=== PATIENT | male | born 1955 | race Caucasian/White ===

== ENCOUNTER 2017-08-27 12:40 | Inpatient (IN) ==
--- NOTE | 2017-08-27 13:29 | Emergency Department Note ---
Disposition Clinical Impression: Tuberculoid infection Pneumonia Qualifiers: Pneumonia type: due to unspecified organism Laterality: bilateral Lung location : unspecified part of lung Qualified Code(s): J18.9 - Pneumonia, unspecified organism Disposition: Admitted As Inpatient Condition: Good Time of Disposition: 16:36 Chest Pain HPI - General Chief Complaint: ED Chest Pain Stated Complaint: cough, chest discomfort Time Seen by Provider: 08/27/17 12:53 Source: patient Limitations: no limitations Vital Signs Reviewed: Yes Nursing Notes Reviewed: Yes - History of Present Illness HPI Narrative: 62 year old male with HX of pneumoina back in may with admission to [facility]. Patinet states that he think he has pnuemonia again. He has a productive lucero colored cough without hemoptyosis. Appears to be hypotensive and tachypniec and hypoxic. Patient states that he has had subjectiv fevers with increased shortness of breath and has develoepd chest pain a few days ago associated with pleuritic pain. Patinet states that it also hurts to cough. Severity scale (1-10): 5 - Related Data Home Medications Medication Instructions Recorded Confirmed Aspirin Enteric Coated [Aspirin EC] 81 mg PO DAILY 05/25/16 08/27/17 Carvedilol [Coreg] 6.25 mg PO BIDWM 05/25/16 08/27/17 Clopidogrel [Plavix] 75 mg PO DAILY 05/25/16 08/27/17 Furosemide [Lasix] 20 mg PO DAILY 05/25/16 08/27/17 Melatonin 10 mg PO HS 05/25/16 08/27/17 Nitroglycerin [Nitrostat] 0.4 mg SL Q5M PRN 05/25/16 08/27/17 OxyCODONE ER (12 HR) [OxyCONTIN] 20 mg PO Q8HR 05/25/16 08/27/17 Oxycodone HCl 15 mg PO TID PRN 05/25/16 08/27/17 Pantoprazole Sodium [Protonix] 40 mg PO DAILY 05/25/16 08/27/17 Tamsulosin [Flomax] 0.4 mg PO QPM 05/25/16 08/27/17 Testosterone Cypionate 100 mg IM Q2W 05/25/16 08/27/17 [Depo-Testosterone] clonazePAM [Klonopin] 1 mg PO HS 05/25/16 08/27/17 Spironolactone [Aldactone] 25 mg PO DAILY 04/11/17 08/27/17 Atorvastatin [Lipitor] 10 mg PO QWEEK 08/27/17 08/27/17 Ipratropium/Albuterol Sulfate 1 puff IH QID PRN 08/27/17 08/27/17 [Combivent Respimat Inhal [place]] Polyethylene Glycol 3350 [MiraLAX] 17 gm PO DAILY PRN 08/27/17 08/27/17 Sotalol HCl [Betapace] 120 mg PO Q12H 08/27/17 08/27/17 Tiotropium [Spiriva] 18 mcg IH DAILY 08/27/17 08/27/17 clonazePAM [Klonopin] 0.5 mg PO BID PRN 08/27/17 08/27/17 Allergies Allergy/AdvReac Type Severity Reaction Status Date / Time atorvastatin AdvReac Joint Pain Verified 08/27/17 12:48 clindamycin AdvReac Gastrointestinal Verified 08/27/17 12:48 Upset fenofibrate AdvReac Joint Pain Verified 08/27/17 12:48 ketorolac AdvReac Joint Pain Verified 08/27/17 12:48 pravastatin [From Pravachol] AdvReac Joint Pain Verified 08/27/17 12:48 rosuvastatin [From Crestor] AdvReac Muscle Pain Verified 08/27/17 12:48 simvastatin AdvReac Joint Pain Verified 08/27/17 12:48 Varenicline [From Chantix] AdvReac Hallucinati Verified 08/27/17 12:48 ng Constitutional: Denies: fever, chills, weakness, weight change Eyes: Denies: eye pain, eye discharge, vision change ENT ED: Denies: ear pain, throat pain, dental pain, hearing loss, epistaxis, congestion, dysphagia Cardiovascular: Reports: chest pain, dyspnea on exertion. Denies: palpitations , edema, syncope Respiratory: Reports: cough, dyspnea. Denies: wheezes, hemoptysis, stridor Gastrointestinal: Denies: abdominal pain, nausea, vomiting, diarrhea, constipation, hematemesis, melena, hematochezia Genitourinary: Denies: urgency, dysuria, frequency, hematuria Musculoskeletal: Denies: back pain, neck pain, arthralgia, myalgia Integumentary: Denies: rash, abrasion, lesions Neurological: Denies: headache, weakness, numbness, paresthesias, confusion, abnormal gait, vertigo Psychiatric: Denies: anxiety, depression, suicidal thoughts, homicidal thoughts , auditory hallucinations, visual hallucinations Endocrine: Denies: fatigue Hematological/Lymphatic: Denies: easy bleeding, easy bruising Allergic/Immunologic: Denies: facial swelling, urticaria Chest Pain PMH - Past Medical History Medical history: Reports: CHF, coronary artery disease, GERD, hyperlipidemia, hypertension, myocardial infarction, valvular heart disease Psychiatric history: Reports: no psych history - Social History Smoking Status: Former smoker Alcohol use: Reports: none Drug use: Reports: none Physical Exam right BKA, extremities exam related to left leg - General Limitations: no limitations General appearance: alert, in no apparent distress - Head Head exam: atraumatic, normocephalic, normal inspection - Eye Eye exam: Present: normal appearance, PERRL, EOMI - Expanded Eye Exam Pupils: Left: reactive - ENT ENT exam: normal exam, normal oropharynx, mucous membranes moist - Expanded ENT Exam External ear exam: Present: normal external inspection Mouth exam: Present: normal external inspection Teeth exam: Present: normal inspection Throat exam: Present: normal inspection - Neck Neck exam: Present: normal inspection, full ROM, trachea midline - Chest Chest inspection: Present: normal inspection, symmetric chest wall rise - Expanded Respiratory Exam Location: decreased breath sounds: Left, Right, Upper, Lower - Cardiovascular Cardiovascular exam: Present: regular rate, normal rhythm, normal heart sounds - Abdominal Exam Abdominal exam: Present: soft, Non-Tender. Absent: tenderness, distention, guarding, rebound, rigidity - Extremities Exam Extremities exam: Present: normal inspection, full ROM. Absent: tenderness, pedal edema - Expanded Upper Extremity Exam Shoulder exam: Present: normal inspection, full ROM Arm exam: Present: normal inspection, full ROM Elbow exam: Present: normal inspection, full ROM Forearm/Wrist exam: Present: normal inspection, full ROM Hand exam: Present: normal inspection, full ROM Vascular exam: Normal: capillary refill, radial pulse - Expanded Lower Extremity Exam Hip/Pelvis exam: Present: normal inspection, full ROM Upper leg exam: Present: normal inspection, full ROM Knee exam: Present: normal inspection, full ROM Lower leg exam: Present: normal inspection, full ROM Ankle exam: Present: normal inspection, full ROM Foot/toe exam: Present: normal inspection, full ROM Neurovascular/Tendon exam: Absent: motor deficit, sensory deficit, tendon deficit - Back Exam Back exam: Present: normal inspection, full ROM. Absent: tenderness - Neurological Exam Neurological exam: Present: alert, oriented X3 - Expanded Neurological Exam Patient oriented to: Present: person, place, time Coma Scale Eye Opening: Spontaneous Coma Scale Motor Response: Obeys Commands Coma Scale Verbal Response: Oriented Coma Scale Total: 15 - Psychiatric Psychiatric exam: Present: normal affect, normal mood - Skin Skin exam: Present: warm, dry, intact, normal color Course Course Narrative: we will do a sepsis workup in addition to rule out PE with CTA chest. IVF/ levaquin started now - Reevaluation(s) Reevaluation #1: Marcelo may have TB, we will admit to medicine. He will need a pulmonology and infectious disease consult. Patient is agreeable to plan. Time: 15:19 - Consultations Consultation #1: Dr Hernandez accepts chen for admission. Time: 16:00 Vital Signs Temperature 97.7 F 08/27/17 12:41 Pulse Rate 66 08/27/17 12:41 Respiratory Rate 16 08/27/17 12:41 Blood Pressure 101/67 08/27/17 12:41 O2 Sat by Pulse Oximetry 90 08/27/17 12:41 Temperature 97.7 F 08/27/17 12:41 Pulse Rate 59 08/27/17 15:39 Respiratory Rate 18 08/27/17 15:39 Blood Pressure 106/66 08/27/17 15:39 O2 Sat by Pulse Oximetry 96 08/27/17 15:39 Oxygen Delivery Oxygen Delivery Room Air Chest Pain - Medical Records Medical records reviewed: Yes I reviewed the patient's medical records. - Lab Data Lab results reviewed: Yes I reviewed the patient's lab results. Result diagrams: 08/27/17 13:29 08/27/17 13:29 Lab Results 08/27/17 08/27/17 08/27/17 Range/Units 13:29 13:29 13:29 WBC (4.3-11.1) K/mcL RBC (4.19-5.50) M/mcL Hgb (12.9-16.9) g/dL Hct (37.5-50.1) % MCV (83.0-100.0) fL MCH (28.0-33.3) pg MCHC (31.6-35.5) g/dL RDW (11.5-14.5) % Plt Count (140-400) K/mcL MPV (9.4-12.4) fL Immature Gran % (0-4) % Seg Neutrophils % % Lymphocytes % % Monocytes % % Eosinophils % % Basophils % % Neutrophils # (1.6-8.9) K/mcL Lymphocytes # (0.6-4.6) K/mcL Monocytes # (0.0-1.3) K/mcL Eosinophils # (0.0-0.6) K/mcL Basophils # (0.0-0.2) K/mcL PT 14.5 H (9.4-12.1) Seconds INR 1.3 APTT 35.4 (26.0-36.0) Seconds Sodium (136-145) mEq/L Potassium (3.5-4.5) mEq/L Chloride (98-109) mEq/L Carbon Dioxide (19-29) mEq/L BUN (8-26) mg/dL Creatinine (0.72-1.25) mg/dL Est GFR ( Amer) (> 60) Est GFR (Non-Af Amer) (> 60) BUN/Creatinine Ratio (6-26) Glucose (70-99) mg/dL Calculated Osmolality (280-300) Lactic Acid (0.5-2.2) mmol/L Calcium (8.6-10.8) mg/dL Total Bilirubin 0.5 (0.2-1.2) mg/dL Direct Bilirubin 0.2 (0.0-0.5) mg/dL Indirect Bilirubin 0.3 (0.0-1.2) mg/dL AST 13 (5-34) Units/L ALT 9 (0-55) Units/L Alkaline Phosphatase 96 (38-126) Units/L Troponin I (0-0.03) ng/mL B-Natriuretic Peptide 109 H (0-100) pg/mL Serum Total Protein 10.5 H (6.0-8.3) g/dL Albumin 2.9 L (3.5-5.0) g/dL Globulin 7.6 H (2.4-3.5) g/dL Albumin/Globulin Ratio 0.4 L (1.1-2.2) Lipase (8-78) Units/L 08/27/17 08/27/17 08/27/17 Range/Units 13:29 13:29 13:29 WBC 11.7 H (4.3-11.1) K/mcL RBC 4.54 (4.19-5.50) M/mcL Hgb 12.4 L (12.9-16.9) g/dL Hct 38.4 (37.5-50.1) % MCV 84.6 (83.0-100.0) fL MCH 27.3 L (28.0-33.3) pg MCHC 32.3 (31.6-35.5) g/dL RDW 14.5 (11.5-14.5) % Plt Count 396 (140-400) K/mcL MPV 8.6 L (9.4-12.4) fL Immature Gran % 0.5 (0-4) % Seg Neutrophils % 75.0 % Lymphocytes % 11.8 % Monocytes % 9.0 % Eosinophils % 3.0 % Basophils % 0.7 % Neutrophils # 8.8 (1.6-8.9) K/mcL Lymphocytes # 1.4 (0.6-4.6) K/mcL Monocytes # 1.1 (0.0-1.3) K/mcL Eosinophils # 0.4 (0.0-0.6) K/mcL Basophils # 0.1 (0.0-0.2) K/mcL PT (9.4-12.1) Seconds INR APTT (26.0-36.0) Seconds Sodium 137 (136-145) mEq/L Potassium 4.3 (3.5-4.5) mEq/L Chloride 101 (98-109) mEq/L Carbon Dioxide 27 (19-29) mEq/L BUN 11 (8-26) mg/dL Creatinine 0.94 (0.72-1.25) mg/dL Est GFR ( Amer) > 60 (> 60) Est GFR (Non-Af Amer) > 60 (> 60) BUN/Creatinine Ratio 12 (6-26) Glucose 102 H (70-99) mg/dL Calculated Osmolality 284 (280-300) Lactic Acid (0.5-2.2) mmol/L Calcium 9.7 (8.6-10.8) mg/dL Total Bilirubin (0.2-1.2) mg/dL Direct Bilirubin (0.0-0.5) mg/dL Indirect Bilirubin (0.0-1.2) mg/dL AST (5-34) Units/L ALT (0-55) Units/L Alkaline Phosphatase (38-126) Units/L Troponin I 0.00 (0-0.03) ng/mL B-Natriuretic Peptide (0-100) pg/mL Serum Total Protein (6.0-8.3) g/dL Albumin (3.5-5.0) g/dL Globulin (2.4-3.5) g/dL Albumin/Globulin Ratio (1.1-2.2) Lipase < 10 (8-78) Units/L 10/24/17 Range/Units 14:08 WBC (4.3-11.1) K/mcL RBC (4.19-5.50) M/mcL Hgb (12.9-16.9) g/dL Hct (37.5-50.1) % MCV (83.0-100.0) fL MCH (28.0-33.3) pg MCHC (31.6-35.5) g/dL RDW (11.5-14.5) % Plt Count (140-400) K/mcL MPV (9.4-12.4) fL Immature Gran % (0-4) % Seg Neutrophils % % Lymphocytes % % Monocytes % % Eosinophils % % Basophils % % Neutrophils # (1.6-8.9) K/mcL Lymphocytes # (0.6-4.6) K/mcL Monocytes # (0.0-1.3) K/mcL Eosinophils # (0.0-0.6) K/mcL Basophils # (0.0-0.2) K/mcL PT (9.4-12.1) Seconds INR APTT (26.0-36.0) Seconds Sodium (136-145) mEq/L Potassium (3.5-4.5) mEq/L Chloride (98-109) mEq/L Carbon Dioxide (19-29) mEq/L BUN (8-26) mg/dL Creatinine (0.72-1.25) mg/dL Est GFR ( Amer) (> 60) Est GFR (Non-Af Amer) (> 60) BUN/Creatinine Ratio (6-26) Glucose (70-99) mg/dL Calculated Osmolality (280-300) Lactic Acid 2.7 H (0.5-2.2) mmol/L Calcium (8.6-10.8) mg/dL Total Bilirubin (0.2-1.2) mg/dL Direct Bilirubin (0.0-0.5) mg/dL Indirect Bilirubin (0.0-1.2) mg/dL AST (5-34) Units/L ALT (0-55) Units/L Alkaline Phosphatase (38-126) Units/L Troponin I (0-0.03) ng/mL B-Natriuretic Peptide (0-100) pg/mL Serum Total Protein (6.0-8.3) g/dL Albumin (3.5-5.0) g/dL Globulin (2.4-3.5) g/dL Albumin/Globulin Ratio (1.1-2.2) Lipase (8-78) Units/L - Radiology Data Radiology results reviewed: Yes I reviewed the patient's radiology results. - EKG Data EKG attestation: Yes I reviewed and interpreted this EKG. EKG results narrative: NSR with rate of 60. NO STEMI. normal intervals. no change from 07/19/15. [id number]
[2017-08-27] MEDS ORDERED: Levofloxacin 750 MG/150 ML 750 MG/150 ML BAG IVPB ONE (13:30)
[2017-08-27 13:41] LABS: Basophils # 0.1 K/mcL (0.0-0.2); Basophils % 0.7 %; Eosinophils # 0.4 K/mcL (0.0-0.6); Hematocrit 38.4 % (37.5-50.1); Hemoglobin 12.4 g/dL (12.9-16.9); Immature Granulocytes % 0.5 % (0-4); Lymphocytes # 1.4 K/mcL (0.6-4.6); Lymphocytes % 11.8 %; Mean Corpuscular HGB Conc 32.3 g/dL (31.6-35.5); Mean Corpuscular Hemoglobin 27.3 pg (28.0-33.3); Mean Corpuscular Volume 84.6 fL (83.0-100.0); Mean Platelet Volume 8.6 fL (9.4-12.4); Monocytes # 1.1 K/mcL (0.0-1.3); Neutrophils # 8.8 K/mcL (1.6-8.9); Platelet Count 396 K/mcL (140-400); Red Blood Count 4.54 M/mcL (4.19-5.50); Red Cell Distribution Width 14.5 % (11.5-14.5)
[2017-08-27 13:48] LABS: INR 1.3; Prothrombin Time 14.5 Seconds (9.4-12.1)
[2017-08-27 13:50] LABS: Activated Partial Thrombo Time 35.4 Seconds (26.0-36.0)
[2017-08-27 13:54] LABS: Albumin 2.9 g/dL (3.5-5.0); Albumin/Globulin Ratio 0.4 (1.1-2.2); Bilirubin,Direct 0.2 mg/dL (0.0-0.5); Bilirubin,Indirect 0.3 mg/dL (0.0-1.2); Bilirubin,Total 0.5 mg/dL (0.2-1.2); Globulin 7.6 g/dL (2.4-3.5); Total Protein 10.5 g/dL (6.0-8.3)
[2017-08-27 13:55] LABS: BUN/Creatinine Ratio 12 (6-26); Blood Urea Nitrogen 11 mg/dL (8-26); Calcium 9.7 mg/dL (8.6-10.8); Carbon Dioxide 27 mEq/L (19-29); Chloride 101 mEq/L (98-109); Glucose 102 mg/dL (70-99); Lipase < 10 Units/L (8-78); Osmolality,Calculated 284 (280-300); Potassium 4.3 mEq/L (3.5-4.5); Sodium 137 mEq/L (136-145); eGFR For African Americans > 60 (> 60); eGFR For Non-African Americans > 60 (> 60)
[2017-08-27] MEDS: 0.9 % Sodium Chloride 1,000 ML IVC SCH ×2 (14:00→14:39)
[2017-08-27] MEDS ORDERED: Ondansetron ODT 4 MG TAB.RAPDIS SL PRN (17:08)
[2017-08-27] MEDS ORDERED: Acetaminophen 325 MG TABLET PO PRN (17:08)
[2017-08-27] MEDS ORDERED: Naloxone 0.4 MG/ML INJ IVP PRN (17:08)
[2017-08-27] MEDS ORDERED: 0.9 % Sodium Chloride 1,000 ML IVC SCH (17:15)
[2017-08-27] MEDS ORDERED: (Ipratropium/Albuterol Sulfate [Combivent Respimat In) IH PRN (17:29)
[2017-08-27] MEDS ORDERED: clonazePAM 0.5 MG TABLET PO PRN (17:29)
[2017-08-27] MEDS ORDERED: Nitroglycerin 0.4 MG TAB.SUBL SL PRN (17:29)
[2017-08-27] MEDS ORDERED: Tuberculin Skin Test (PPD) 5 TUB/0.1 ML VIAL ID ONE (17:34)
[2017-08-27] MEDS: Ipratropium/Albuterol Neb 3 ML IH PRN (21:11)
[2017-08-27] MEDS: *HR* OxyCODONE Immed Rel 15 MG TABLET PO PRN (21:23)
[2017-08-27] MEDS: clonazePAM 1 MG TABLET PO SCH (21:25)
[2017-08-27] MEDS: Melatonin 3 MG TABLET PO SCH (23:52)
[2017-08-27] MEDS: *HR* OxyCODONE ER (12 HR) 20 MG TABLET PO SCH (23:52)
[2017-08-28] MEDS: *HR* OxyCODONE Immed Rel 15 MG TABLET PO PRN ×2 (05:23→20:16)
[2017-08-28] MEDS: *HR* Enoxaparin 40 MG/0.4 ML SYRINGE SQ SCH (05:23)
[2017-08-28 05:45] LABS: Basophils # 0.1 K/mcL (0.0-0.2); Basophils % 0.3 %; Eosinophils # 0.2 K/mcL (0.0-0.6); Hematocrit 33.5 % (37.5-50.1); Immature Granulocytes % 0.5 % (0-4); Lymphocytes # 1.2 K/mcL (0.6-4.6); Mean Corpuscular HGB Conc 32.2 g/dL (31.6-35.5); Mean Corpuscular Hemoglobin 26.6 pg (28.0-33.3); Mean Corpuscular Volume 82.5 fL (83.0-100.0); Monocytes # 1.1 K/mcL (0.0-1.3); Monocytes % 7.4 %; Neutrophils # 12.1 K/mcL (1.6-8.9); Platelet Count 364 K/mcL (140-400); Red Blood Count 4.06 M/mcL (4.19-5.50); Red Cell Distribution Width 14.7 % (11.5-14.5); Segmented Neutrophils % 82.8 %
[2017-08-28 05:46] LABS: Hemoglobin 10.8 g/dL (12.9-16.9)
[2017-08-28 05:53] LABS: BUN/Creatinine Ratio 11 (6-26); Blood Urea Nitrogen 9 mg/dL (8-26); Calcium 8.9 mg/dL (8.6-10.8); Carbon Dioxide 24 mEq/L (19-29); Chloride 103 mEq/L (98-109); Glucose 97 mg/dL (70-99); Osmolality,Calculated 277 (280-300); Sodium 134 mEq/L (136-145); eGFR For African Americans > 60 (> 60); eGFR For Non-African Americans > 60 (> 60)
--- NOTE | 2017-08-28 06:11 | Internal Med History&Physical ---
<Ladarius Smith - Last Filed: 08/28/17 08:59> Date of Encounter: 08/27/17 Time of Encounter: 16:30 Assessment and Plan (1) Acute respiratory failure with hypoxia Current visit: Yes Status: Acute Pt does not use home O2. Pt provided with nasal canula at 2L, saturating at 92-93. Presenting with non-bloody cough, chest pain, and fevers suggestive of acute infection on chronic COPD. Most recent CTA of lung shows hyperinflation, bronchiectasis, hilarlymphadenopathy, and multifocal consolidations. Placed on Levofloxacin and Zosyn in addition to steroid. Continue Duoneb, Spiriva. (2) Tuberculoid infection Current visit: Yes Status: Acute CTA reports patchy multifocal consolidations in right upper lobe base and anterior left upper lobe which may suggest mycobacterial disease. Consulting Pulmonology. AFB smear ordered. Quanterferon ordered. TB infectious process unlikely from clinical correlate and patient history. (3) COPD (chronic obstructive pulmonary disease) Current visit: Yes Status: Acute Non-bloody cough, chest pain, and fevers suggestive of acute infection on chronic COPD. Most recent CTA of lung shows hyperinflation, bronchiectasis, hilarlymphadenopathy, and multifocal consolidations. Placed on Levofloxacin and Zosyn in addition to steroid. Continue Duoneb, Spiriva. Qualifiers: Qualified Code(s): J44.1 - Chronic obstructive pulmonary disease with (acute ) exacerbation (4) CHF (congestive heart failure) Current visit: Yes Status: Acute History of CHF, currently very mild symptoms. BNP 109. Continue Coreg, Sotalol, Lasix, Plavix, Aldactone. Qualifiers: Congestive heart failure type: systolic Qualified Code(s): I50.22 - Chronic systolic (congestive) heart failure (5) CAD (coronary artery disease) Current visit: Yes Status: Chronic [place] at 44; v-tac history. Pacemaker/defibrilator place. Troponin negative. Continue Post-[place] medications: Aspirin, bb, diuretic, not-currently on statin. Qualifiers: Qualified Code(s): I25.10 - Atherosclerotic heart disease of [place] coronary artery without angina pectoris (6) HTN (hypertension) Current visit: Yes Status: Chronic Patient to continue antihypertensive medications: bb, lasix. Qualifiers: Hypertension type: essential hypertension Qualified Code(s): I10 - Essential (primary) hypertension (7) DVT prophylaxis Current visit: Yes Status: Acute On Lovenox 40mg SQ Internal Medicine - H&P: HPI Chief complaint: chest pain Admitted From: Emergency Dept Plans for Post Hospital Care: Home History of present illness: Mr. Beltran is a 62 year old male with past medical history of CHF and COPD, former smoker, who presents to the ED for chest pain, productive cough, and shortness of breath that began a few days ago. Patient describes the location as bilateral chest villatoro. He has felt warm, coughing, and abrupt movements cause the pain. Has been following a science analyst, who a week ago performed needle biopsy of nodule in his lung. Pt states the science analyst does not think it is a form of cancer. Denies diarrhea, exertional chest pain, night sweats, or hemoptysis. Past Med Surg Social Fam HX - Past Medical History Medical history: CHF, coronary artery disease, GERD, hyperlipidemia, hypertension, myocardial infarction, valvular heart disease Psychiatric history: no psych history - Social History Smoking Status: Former smoker Smokeless Tobacco Status: No Alcohol use: none Drug use: none Internal Medicine - H&P: Meds Aspirin Enteric Coated [Aspirin EC] 81 mg PO DAILY 05/25/16 [History] Carvedilol [Coreg] 6.25 mg PO BIDWM 05/25/16 [History] Clopidogrel [Plavix] 75 mg PO DAILY 05/25/16 [History] Furosemide [Lasix] 20 mg PO DAILY 05/25/16 [History] Melatonin 10 mg PO HS 05/25/16 [History] Nitroglycerin [Nitrostat] 0.4 mg SL Q5M PRN 05/25/16 [History] OxyCODONE ER (12 HR) [OxyCONTIN] 20 mg PO Q8HR 05/25/16 [History] Oxycodone HCl 15 mg PO TID PRN 05/25/16 [History] Pantoprazole Sodium [Protonix] 40 mg PO DAILY 05/25/16 [History] Tamsulosin [Flomax] 0.4 mg PO QPM 05/25/16 [History] Testosterone Cypionate [Depo-Testosterone] 100 mg IM Q2W 05/25/16 [History] clonazePAM [Klonopin] 1 mg PO HS 05/25/16 [History] Spironolactone [Aldactone] 25 mg PO DAILY 04/11/17 [History] Atorvastatin [Lipitor] 10 mg PO QWEEK 08/27/17 [History] Ipratropium/Albuterol Sulfate [Combivent Respimat Inhal [place]] 1 puff IH QID PRN 08/27/17 [History] Polyethylene Glycol 3350 [MiraLAX] 17 gm PO DAILY PRN 08/27/17 [History] Sotalol HCl [Betapace] 120 mg PO Q12H 08/27/17 [History] Tiotropium [Spiriva] 18 mcg IH DAILY 08/27/17 [History] clonazePAM [Klonopin] 0.5 mg PO BID PRN 08/27/17 [History] 3 Allergy/AdvReac Type Severity Reaction Status Date / Time atorvastatin AdvReac Joint Pain Verified 08/27/17 12:48 clindamycin AdvReac Gastrointestinal Verified 08/27/17 12:48 Upset fenofibrate AdvReac Joint Pain Verified 08/27/17 12:48 ketorolac AdvReac Joint Pain Verified 08/27/17 12:48 pravastatin [From Pravachol] AdvReac Joint Pain Verified 08/27/17 12:48 rosuvastatin [From Crestor] AdvReac Muscle Pain Verified 08/27/17 12:48 simvastatin AdvReac Joint Pain Verified 08/27/17 12:48 Varenicline [From Chantix] AdvReac Hallucinati Verified 08/27/17 12:48 ng All Systems PM: A 10-system review of systems was performed and is negative for pertinent findings except as documented above in the HPI. - Constitutional Constitutional: fatigue, weight loss, no night sweats - Cardiovascular Cardiovascular ROS IM: no edema - Respiratory Respiratory: cough, pain with cough, no hemoptysis - Gastrointestinal Gastrointestinal: no abdominal pain, no diarrhea - Musculoskeletal Musculoskeletal ROS IM: no numbness, no tingling - Neurological Neurological ROS: no confusion, no weakness - Endocrine Endocrine IM: no excessive sweating - Constitutional Vitals: Temp Pulse Resp BP Pulse Ox 100.3 F H 86 18 112/68 91 08/28/17 04:38 08/28/17 04:38 08/28/17 04:38 08/28/17 04:38 08/28/17 04:38 General appearance: Present: A&O X 3, no acute distress - Respiratory Respiratory exam: Present: decreased breath sounds. Absent: accessory muscle use, wheezes - Cardiovascular Cardiovascular exam: Present: RRR, +S1, +S2. Absent: systolic murmur - GI/Abdominal GI/Abdominal exam: Present: no peritoneal signs. Absent: tenderness - Extremities Exam Additional comments: Right knee amputation. - Skin Skin exam: Present: normal color, warm. Absent: diaphoretic Internal Med - H&P Results - Labs CBC & Chem 7: 08/28/17 05:08 08/28/17 05:08 Labs: Short CBC 08/28/17 Range/Units 05:08 WBC 14.7 H (4.3-11.1) K/mcL Hgb 10.8 L D (12.9-16.9) g/dL Hct 33.5 L (37.5-50.1) % Plt Count 364 (140-400) K/mcL Neutrophils # 12.1 H (1.6-8.9) K/mcL BMP 08/28/17 05:08 Sodium 134 L Potassium 4.0 Chloride 103 Carbon Dioxide 24 BUN 9 Creatinine 0.82 Glucose 97 Calcium 8.9 <Alyson Ventura - Last Filed: 08/28/17 16:20> Date of Encounter: 08/28/17 Internal Medicine - H&P: HPI History of present illness: Mr. Beltran is a 62 year old male All Systems PM: A 10-system review of systems was performed and is negative for pertinent findings except as documented above in the HPI. - Constitutional Vitals: Temp Pulse Resp BP Pulse Ox 97.6 F 74 18 104/84 93 08/28/17 11:16 08/28/17 11:16 08/28/17 11:16 08/28/17 11:16 08/28/17 11:16 Internal Med - H&P Results - Labs CBC & Chem 7: 08/28/17 05:08 08/28/17 05:08 Labs: Short CBC 08/28/17 Range/Units 05:08 WBC 14.7 H (4.3-11.1) K/mcL Hgb 10.8 L D (12.9-16.9) g/dL Hct 33.5 L (37.5-50.1) % Plt Count 364 (140-400) K/mcL Neutrophils # 12.1 H (1.6-8.9) K/mcL BMP 08/28/17 05:08 Sodium 134 L Potassium 4.0 Chloride 103 Carbon Dioxide 24 BUN 9 Creatinine 0.82 Glucose 97 Calcium 8.9 - Attending Attestation I examined this patient and my medical decision-making was reviewed with the Resident Physician. I agree with the documented findings, disposition and treatment plan as described except to the extent set forth below. Mr. Beltran is a 62 yo m with history of CHF, COPD, and frequent recurrent pneumonia that presented to the ED with dyspnea, cough, and chest pain. He says that he has been battling frequent pneumonias since December, and has been treated by his primary care and science analyst. On this last Saturday, the patient completed pulmonary function test, and the next day he woke up with severe stabbing chest pains with movement or deep inspiration, cough, and weakness. In the ED the patient had a CTA chest which demonstrated patchy multifocal consolidative changes consistent with possible mycobacterium. Pt did mentions that he'd been seen and treated by a science analyst at [facility] had bronchoscopy and biopsy of the lung to look for cancer, but it was negative Gen: A, A< O x 3 Chest: Diminished BS, coarse tubular BS b/l.. No rales. No rhonchi, moderate wheezing Heart : S1 S2 ++ RRR No murmurs a/p 1. Acute pneumonia - mostly bacterial 2. Abnormal CT of Chest findings concern for Mycobacterial inf 3. Acute hypoxic rsp failure 4. Acute COPD exacerbation started him TB precautions Sent for Tb work up Pulmonary consulted on Zosyn and Levaquin abx on Steroids + Duoneb 5. Chronic systolic CHF family told me he had LVEF 30-35% currently not in exacerbation cont home meds for now
[2017-08-28] MEDS: Tiotropium 18 MCG inhalation IH SCH (08:06)
[2017-08-28] MEDS: Aspirin Enteric Coated 81 MG Tablet PO SCH (08:10)
[2017-08-28] MEDS: MethylPREDNISolone 40 MG/ML VIAL IVP SCH ×2 (08:10→20:16)
[2017-08-28] MEDS: *HR* OxyCODONE ER (12 HR) 20 MG TABLET PO SCH ×3 (08:10→16:12)
[2017-08-28] MEDS: Furosemide 20 MG TABLET PO SCH ×2 (08:10→09:40)
[2017-08-28] MEDS ORDERED: Spironolactone 25 MG TABLET PO SCH (09:00)
[2017-08-28] MEDS ORDERED: Levofloxacin 500 MG/100 ML 500 MG/100 ML BAG IVPB SCH (09:00)
--- NOTE | 2017-08-28 09:00 | Pulmonology Consult Note ---
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 Patient denies cyclical fevers, chills, sweats, hemoptysis Patient denies all risk factors for TB, and denies risk factors for HIV infection Primary team ordered AFB, Quantiferon. Patient on respiratory precautions We will due three consecutive smears to rule out tb Discontinue levaquin, initiate Azithromycin History of Present Illness Consult date: 08/28/17 Requesting physician: Alyson Ventura Reason for consult: pneumonia (Possible TB) Chief complaint: Chest pain and dyspnea History of present illness: Mr. Beltran is a 62 yo m with history of CHF, COPD, and frequent recurrent pneumonia that presented to the ED with dyspnea, cough, and chest pain. He says that he has been battling frequent pneumonias since December, and has been treated by his primary care and visual education director. On this last Saturday, the patient completed pulmonary function test, and the next day he woke up with severe stabbing chest pains with movement or deep inspiration, cough, and weakness. The patient denies fevers, chills, night sweats, hemoptysis. He says the cough is only productive after using a nebulizer, but is otherwise dry in nature. Nothing seems to exacerbate or alleviate the symptoms, but he felt like he may need an antibiotic to improve because that's what he has needed in the past. He said it has gotten worse, and the visual education director told him to go to the ER. Significantly, the patient mentions that he'd been seen and treated by a visual education director at [facility] who did a biopsy of the lung to look for cancer, but it was negative. In the ED the patient had a CTA chest which demonstrated patchy multifocal consolidative changes consistent with possible mycobacterium. Past Med Surg Social Fam HX - Past Medical History Medical history: CHF, coronary artery disease, GERD, hyperlipidemia, hypertension, myocardial infarction, valvular heart disease Psychiatric history: no psych history - Social History Smoking Status: Former smoker Smokeless Tobacco Status: No Alcohol use: none Drug use: none Medications and Allergies Aspirin Enteric Coated [Aspirin EC] 81 mg PO DAILY 05/25/16 [History] Carvedilol [Coreg] 6.25 mg PO BIDWM 05/25/16 [History] Clopidogrel [Plavix] 75 mg PO DAILY 05/25/16 [History] Furosemide [Lasix] 20 mg PO DAILY 05/25/16 [History] Melatonin 10 mg PO HS 05/25/16 [History] Nitroglycerin [Nitrostat] 0.4 mg SL Q5M PRN 05/25/16 [History] OxyCODONE ER (12 HR) [OxyCONTIN] 20 mg PO Q8HR 05/25/16 [History] Oxycodone HCl 15 mg PO TID PRN 05/25/16 [History] Pantoprazole Sodium [Protonix] 40 mg PO DAILY 05/25/16 [History] Tamsulosin [Flomax] 0.4 mg PO QPM 05/25/16 [History] Testosterone Cypionate [Depo-Testosterone] 100 mg IM Q2W 05/25/16 [History] clonazePAM [Klonopin] 1 mg PO HS 05/25/16 [History] Spironolactone [Aldactone] 25 mg PO DAILY 04/11/17 [History] Atorvastatin [Lipitor] 10 mg PO QWEEK 08/27/17 [History] Ipratropium/Albuterol Sulfate [Combivent Respimat Inhal [place]] 1 puff IH QID PRN 08/27/17 [History] Polyethylene Glycol 3350 [MiraLAX] 17 gm PO DAILY PRN 08/27/17 [History] Sotalol HCl [Betapace] 120 mg PO Q12H 08/27/17 [History] Tiotropium [Spiriva] 18 mcg IH DAILY 08/27/17 [History] clonazePAM [Klonopin] 0.5 mg PO BID PRN 08/27/17 [History] 3 Allergy/AdvReac Type Severity Reaction Status Date / Time atorvastatin AdvReac Joint Pain Verified 08/27/17 12:48 clindamycin AdvReac Gastrointestinal Verified 08/27/17 12:48 Upset fenofibrate AdvReac Joint Pain Verified 08/27/17 12:48 ketorolac AdvReac Joint Pain Verified 08/27/17 12:48 pravastatin [From Pravachol] AdvReac Joint Pain Verified 08/27/17 12:48 rosuvastatin [From Crestor] AdvReac Muscle Pain Verified 08/27/17 12:48 simvastatin AdvReac Joint Pain Verified 08/27/17 12:48 Varenicline [From Chantix] AdvReac Hallucinati Verified 08/27/17 12:48 ng All Systems: A 10-system review of systems was performed and is negative for pertinent findings except as documented above in the HPI. - Constitutional Constitutional: no anorexia, no chills, no excessive sweating, no fever(s), no night sweats - EENT Eyes: no loss of vision Nose, mouth and throat: no sinus pain, no sinus pressure - Cardiovascular Cardiovascular: chest pain at rest, dyspnea, edema, no claudication, no diaphoresis, no lightheadedness, no orthopnea, no palpitations, no radiating pain - Respiratory Respiratory: cough, dyspnea, pain on inspirtation, chest congestion, pain with cough, no excessive phlegm production, no change in phlegm color - Gastrointestinal Gastrointestinal: no abdominal pain, no heartburn, no hematochezia, no melena, no nausea, no vomiting - Genitourinary Genitourinary: no change in urinary stream, no dysuria - Musculoskeletal Musculoskeletal: no arthralgias, no joint swelling, no muscle weakness, no myalgias - Integumentary Integumentary: no rash - Neurological Neurological: no abnormal speech, no confusion, no disequilibrium, no focal weakness - Psychiatric Psychiatric: anxiety, no mood swings, no panic attacks, no suicidal ideation - Endocrine Endocrine: no flushing, no heat intolerance, no palpitations - Hematologic/Lymphatic Hematologic/Lymphatic: no lymphadenopathy Physical Examination Vital Signs: Vital Signs, Last 4 Hours Temp Pulse Resp BP Pulse Ox 08/28/17 07:11 98.3 F 80 18 96/47 92 General appearance: no acute distress Eyes: nonicteric ENT: oropharynx moist Neck: supple Effort: normal Inspection: normal Auscultation: bilateral: wheezes (mild but diffuse) Percussion: bilateral: not dull Cardiovascular: regular rate and rhythm Gastrointestinal: normoactive bowel sounds, non-distended Integumentary: normal Extremities: no cyanosis, no edema, no clubbing Musculoskeletal: no deformities, ROM normal non-focal exam affect normal (aggressive) Neck: Supple, no lymphadenopathy Skin: So rash, lesions Results - Laboratory Findings CBC and BMP: 08/28/17 05:08 08/28/17 05:08 PT/INR, D-dimer PT 14.5 Seconds (9.4-12.1) H 08/27/17 13:29 Abnormal lab findings: Abnormal lab results WBC 14.7 K/mcL (4.3-11.1) H 08/28/17 05:08 RBC 4.06 M/mcL (4.19-5.50) L 08/28/17 05:08 Hgb 10.8 g/dL (12.9-16.9) L D 08/28/17 05:08 Hct 33.5 % (37.5-50.1) L 08/28/17 05:08 MCV 82.5 fL (83.0-100.0) L 08/28/17 05:08 MCH 26.6 pg (28.0-33.3) L 08/28/17 05:08 RDW 14.7 % (11.5-14.5) H 08/28/17 05:08 MPV 9.0 fL (9.4-12.4) L 08/28/17 05:08 Neutrophils # 12.1 K/mcL (1.6-8.9) H 08/28/17 05:08 PT 14.5 Seconds (9.4-12.1) H 08/27/17 13:29 Sodium 134 mEq/L (136-145) L 08/28/17 05:08 Lactic Acid 2.7 mmol/L (0.5-2.2) H 08/27/17 14:08 Calculated Osmolality 277 (280-300) L 08/28/17 05:08 B-Natriuretic Peptide 109 pg/mL (0-100) H 08/27/17 13:29 Serum Total Protein 10.5 g/dL (6.0-8.3) H 08/27/17 13:29 Albumin 2.9 g/dL (3.5-5.0) L 08/27/17 13:29 Globulin 7.6 g/dL (2.4-3.5) H 08/27/17 13:29 Albumin/Globulin Ratio 0.4 (1.1-2.2) L 08/27/17 13:29 - Microbiology Findings Microbiology Findings: Microbiology, Last 48 Hours 08/27/17 21:37 Sputum Culture - Preliminary Sputum - Clinical Findings Intake & Output: Intake & Output 08/27/17 08/28/17 08/28/17 23:59 07:59 15:59 Intake Total 390 / 1390 Output Total 480 / 480 Balance 390 / 1390 -480 / -480 Weight 79.1 kg Consult Discharge Plan - Plan Referrals: Alessia Burgos MD [Primary Care Provider] - 09/05/17 10:30 am <Skye Murray - Last Filed: 08/28/17 13:18> Date of Encounter: 08/28/17 All Systems: A 10-system review of systems was performed and is negative for pertinent findings except as documented above in the HPI. Physical Examination Vital Signs: Vital Signs, Last 4 Hours Temp Pulse Resp BP Pulse Ox 08/28/17 11:16 97.6 F 74 18 104/84 93 08/28/17 09:37 115/70 Extremities: other (Right side AKA) Results - Laboratory Findings CBC and BMP: 08/28/17 05:08 08/28/17 05:08 PT/INR, D-dimer PT 14.5 Seconds (9.4-12.1) H 08/27/17 13:29 Abnormal lab findings: Abnormal lab results WBC 14.7 K/mcL (4.3-11.1) H 08/28/17 05:08 RBC 4.06 M/mcL (4.19-5.50) L 08/28/17 05:08 Hgb 10.8 g/dL (12.9-16.9) L D 08/28/17 05:08 Hct 33.5 % (37.5-50.1) L 08/28/17 05:08 MCV 82.5 fL (83.0-100.0) L 08/28/17 05:08 MCH 26.6 pg (28.0-33.3) L 08/28/17 05:08 RDW 14.7 % (11.5-14.5) H 08/28/17 05:08 MPV 9.0 fL (9.4-12.4) L 08/28/17 05:08 Neutrophils # 12.1 K/mcL (1.6-8.9) H 08/28/17 05:08 PT 14.5 Seconds (9.4-12.1) H 08/27/17 13:29 Sodium 134 mEq/L (136-145) L 08/28/17 05:08 Lactic Acid 2.7 mmol/L (0.5-2.2) H 08/27/17 14:08 Calculated Osmolality 277 (280-300) L 08/28/17 05:08 B-Natriuretic Peptide 109 pg/mL (0-100) H 08/27/17 13:29 Serum Total Protein 10.5 g/dL (6.0-8.3) H 08/27/17 13:29 Albumin 2.9 g/dL (3.5-5.0) L 08/27/17 13:29 Globulin 7.6 g/dL (2.4-3.5) H 08/27/17 13:29 Albumin/Globulin Ratio 0.4 (1.1-2.2) L 08/27/17 13:29 - Microbiology Findings Microbiology Findings: Microbiology, Last 48 Hours 08/27/17 21:37 Sputum Culture - Preliminary Sputum - Clinical Findings Intake & Output: Intake & Output 08/27/17 08/28/17 08/28/17 23:59 07:59 15:59 Intake Total 390 / 1390 240 / 240 Output Total 480 / 480 Balance 390 / 1390 -480 / -480 240 / 240 Weight 79.1 kg - Attending Attestation I examined this patient and my medical decision-making was reviewed with the Resident Physician. I agree with the documented findings, disposition and treatment plan as described except to the extent set forth below. Patient seen and examined. Labs, radiology, chart personally reviewed. 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 Reviewed CT chest with evidence of infiltrates, suspicion for Mycobacterium tuberculosis is low clinically, however he would need 3 AFB smears acute and also stop Levaquin since it can interfere with the testing. Added azithromycin for atypical coverage. After 3 smears, if they are negative and no improvement clinically and patient will need bronchoscopy. Thank you very much for allowing us participating in the care of this patient.
[2017-08-28] MEDS: Azithromycin 250 MG TABLET PO SCH (09:33)
--- NOTE | 2017-08-28 11:10 | Internal Med Progress Note ---
<Ladarius Smith - Last Filed: 08/28/17 11:30> Date of Encounter: 08/28/17 Time of Encounter: 11:09 - Assessment and plan (1) Acute respiratory failure with hypoxia Current Visit: Yes Status: Acute Assessment and plan: Pt does not use home O2. Pt provided with nasal canula at 2L, saturating at 92-93. Presenting with non-bloody cough, chest pain, and fevers suggestive of acute infection on chronic COPD. Most recent CTA of lung shows hyperinflation, bronchiectasis, hilarlymphadenopathy, and multifocal consolidations. Continue Duoneb, Spiriva. Levofloxacin changed to azithromycin as per pulmonology to assist with TB rule out. (2) Tuberculoid infection Current Visit: Yes Status: Suspected Assessment and plan: As noted above, levofloxacin changed to azithromycin. Pulmonology consulted, sputum sample cultured, smears pending. (3) COPD (chronic obstructive pulmonary disease) Current Visit: Yes Status: Acute Assessment and plan: Non-bloody cough, chest pain, and fevers suggestive of acute infection on chronic COPD. Most recent CTA of lung shows hyperinflation, bronchiectasis, hilarlymphadenopathy, and multifocal consolidations. Given methyprednisolone. On 3L nasal cannula. Continue Duoneb, Spiriva Qualifiers: Qualified Code(s): J44.1 - Chronic obstructive pulmonary disease with (acute ) exacerbation (4) CHF (congestive heart failure) Current Visit: Yes Status: Acute Assessment and plan: History of CHF, currently very mild symptoms. BNP 109. Continue Coreg, Sotalol, Lasix, Plavix, hold Aldactone due to lower BPs. Qualifiers: Congestive heart failure type: systolic Qualified Code(s): I50.22 - Chronic systolic (congestive) heart failure (5) CAD (coronary artery disease) Current Visit: Yes Status: Chronic Assessment and plan: WA at 44; v-tac history. Pacemaker/defibrilator place. Troponin negative. Continue Post-WA medications: Aspirin, bb, diuretic, not-currently on statin. Qualifiers: Qualified Code(s): I25.10 - Atherosclerotic heart disease of [place] coronary artery without angina pectoris (6) HTN (hypertension) Current Visit: Yes Status: Chronic Assessment and plan: Patient to continue antihypertensive medications: bb, lasix. Qualifiers: Hypertension type: essential hypertension Qualified Code(s): I10 - Essential (primary) hypertension (7) DVT prophylaxis Current Visit: Yes Status: Acute Assessment and plan: On Lovenox 40mg SQ - Subjective Interval history: Patient sitting relatively comfortably on 3L nasal cannula. Reports breathing treatments improve symptoms but has productive coughing for prolonged duration right after. Not currently coughing. Denies dysurea, leg swelling, shortness of breath. - Constitutional Vitals: Temp Pulse Resp BP Pulse Ox 98.3 F 80 18 115/70 92 08/28/17 07:11 08/28/17 07:11 08/28/17 07:11 08/28/17 09:37 08/28/17 07:11 General appearance: Present: A&O X 3, no acute distress - Respiratory Respiratory exam: Present: decreased breath sounds Additional comments: posterior left lung base rhonchi. - Cardiovascular Cardiovascular exam: Present: RRR, +S1, +S2 - GI/Abdominal GI/Abdominal exam: Present: no peritoneal signs. Absent: tenderness - Extremities Exam Extremities exam: Present: normal capillary refill, warm. Absent: pedal edema, tenderness Internal Medicine: Result - Labs CBC & Chem 7: 08/28/17 05:08 08/28/17 05:08 Labs: Short CBC 08/28/17 Range/Units 05:08 WBC 14.7 H (4.3-11.1) K/mcL Hgb 10.8 L D (12.9-16.9) g/dL Hct 33.5 L (37.5-50.1) % Plt Count 364 (140-400) K/mcL Neutrophils # 12.1 H (1.6-8.9) K/mcL BMP 08/28/17 05:08 Sodium 134 L Potassium 4.0 Chloride 103 Carbon Dioxide 24 BUN 9 Creatinine 0.82 Glucose 97 Calcium 8.9 - ABG Interpretation ABG results: PT/INR, D-dimer PT 14.5 Seconds (9.4-12.1) H 08/27/17 13:29 Consult Discharge Plan - Plan Referrals: Alessia Burgos MD [Primary Care Provider] - 09/05/17 10:30 am <Alyson Ventura - Last Filed: 08/28/17 16:22> Date of Encounter: 08/28/17 - Constitutional Vitals: Temp Pulse Resp BP Pulse Ox 97.6 F 74 18 104/84 93 08/28/17 11:16 08/28/17 11:16 08/28/17 11:16 08/28/17 11:16 08/28/17 11:16 Internal Medicine: Result - Labs CBC & Chem 7: 08/28/17 05:08 08/28/17 05:08 Labs: Short CBC 08/28/17 Range/Units 05:08 WBC 14.7 H (4.3-11.1) K/mcL Hgb 10.8 L D (12.9-16.9) g/dL Hct 33.5 L (37.5-50.1) % Plt Count 364 (140-400) K/mcL Neutrophils # 12.1 H (1.6-8.9) K/mcL BMP 08/28/17 05:08 Sodium 134 L Potassium 4.0 Chloride 103 Carbon Dioxide 24 BUN 9 Creatinine 0.82 Glucose 97 Calcium 8.9 - ABG Interpretation ABG results: PT/INR, D-dimer PT 14.5 Seconds (9.4-12.1) H 08/27/17 13:29 - Attending Attestation I examined this patient and my medical decision-making was reviewed with the Resident Physician. I agree with the documented findings, disposition and treatment plan as described except to the extent set forth below. Mr. Beltran is a 62 yo m with history of CHF, COPD, and frequent recurrent pneumonia that presented to the ED with dyspnea, cough, and chest pain. In the ED the patient had a CTA chest which demonstrated patchy multifocal consolidative changes consistent with possible mycobacterium. Pt did mentions that he'd been seen and treated by a digital photographic printer at [facility] had bronchoscopy and biopsy of the lung to look for cancer, but it was negative. He did develop low grade fever this morning with T max 100.3 Gen: A, A, O x 3 Chest: Diminished BS, coarse tubular BS b/l.. No rales. No rhonchi, mild wheezing Heart : S1 S2 ++ RRR No murmurs a/p 1. Acute pneumonia - mostly bacterial 2. Abnormal CT of Chest findings concern for Mycobacterial inf 3. Acute hypoxic rsp failure 4. Acute COPD exacerbation Cont him on TB precautions Sent for Tb work up Pulmonary on board on Zosyn .. Pulmonary changed Levaquin to Azithromycin started tapering Steroids + Duoneb 5. Chronic systolic CHF family told me he had LVEF 30-35% will request records from his cardiology and PCP office currently not in exacerbation cont home meds for now Held diuretics for today
[2017-08-28] MEDS: Ipratropium/Albuterol Neb 3 ML IH PRN (11:23)
--- NOTE | 2017-08-28 17:07 | Electrocardiograph Report ---
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
[2017-08-28] MEDS ORDERED: MethylPREDNISolone 40 MG/ML VIAL IVP SCH (17:29)
[2017-08-28] MEDS: Piperacillin/Tazobactam 3.375 GM in D5% in Water (Mini-Bag+) 100 ML IVPB SCH (17:59)
[2017-08-28] MEDS: clonazePAM 1 MG TABLET PO SCH (21:56)
[2017-08-29] MEDS: *HR* OxyCODONE ER (12 HR) 20 MG TABLET PO SCH ×4 (00:15→23:53)
[2017-08-29] MEDS: Melatonin 3 MG TABLET PO SCH ×2 (00:15→21:54)
[2017-08-29] MEDS: Piperacillin/Tazobactam 3.375 GM in D5% in Water (Mini-Bag+) 100 ML IVPB SCH ×3 (04:35→19:10)
[2017-08-29] MEDS: *HR* OxyCODONE Immed Rel 15 MG TABLET PO PRN ×2 (04:52→19:09)
[2017-08-29 06:29] LABS: Basophils % 0.1 %; Hematocrit 36.1 % (37.5-50.1); Hemoglobin 11.2 g/dL (12.9-16.9); Immature Granulocytes % 0.5 % (0-4); Lymphocytes # 0.9 K/mcL (0.6-4.6); Lymphocytes % 5.6 %; Mean Corpuscular Hemoglobin 26.7 pg (28.0-33.3); Mean Platelet Volume 9.1 fL (9.4-12.4); Monocytes # 0.3 K/mcL (0.0-1.3); Monocytes % 1.9 %; Neutrophils # 14.2 K/mcL (1.6-8.9); Platelet Count 402 K/mcL (140-400); Red Cell Distribution Width 14.4 % (11.5-14.5); Segmented Neutrophils % 91.9 %
[2017-08-29 06:45] LABS: BUN/Creatinine Ratio 15 (6-26); Blood Urea Nitrogen 12 mg/dL (8-26); Calcium 9.2 mg/dL (8.6-10.8); Carbon Dioxide 25 mEq/L (19-29); Chloride 106 mEq/L (98-109); Glucose 140 mg/dL (70-99); Magnesium 1.7 mg/dL (1.6-2.6); Osmolality,Calculated 286 (280-300); Potassium 3.8 mEq/L (3.5-4.5); Sodium 137 mEq/L (136-145); eGFR For African Americans > 60 (> 60); eGFR For Non-African Americans > 60 (> 60)
[2017-08-29] MEDS: *HR* Enoxaparin 40 MG/0.4 ML SYRINGE SQ SCH (06:46)
--- NOTE | 2017-08-29 08:27 | Pulmonology Progress Note ---
<Emerson Arrieta - Last Filed: 08/29/17 09:50> Date of Encounter: 08/29/17 Time of Encounter: 09:50 Assessment and Plan (1) Tuberculoid infection Current Visit: Yes Status: Suspected The patient feels that he's improving. Microbiology, Quantiferon, AFB smears pending Induration is not noted at site of PPD WBC up today, primarily mature neutrophils, likely secondary to steroids Zosyn, Azithromycin day 2 We will continue to follow this patient Subjective Principal diagnosis: Pneumonia Interval history: The patient was resting comfortably in bed at the time of examination. He has no acute complaints. He says that overnight he began to feel much better, specifically in that he was coughing less, and he was able to take deeper breaths without pain in his chest. He does share his concern that part of the reason he's not producing sputum is because he usually only does following a breathing treatment. Objective PUL Vital signs: Last Vital Signs Temp 97.5 F L 08/29/17 07:17 Pulse 64 08/29/17 07:17 Resp 16 08/29/17 07:17 BP 91/59 08/29/17 07:17 Pulse Ox 95 08/29/17 07:17 General appearance: no acute distress, asleep Eyes: nonicteric ENT: oropharynx moist Neck: supple, no lymphadenopathy Effort: normal Auscultation: bilateral: clear, diminished breath sounds (L>R) Cardiovascular: regular rate and rhythm Gastrointestinal: normoactive bowel sounds, soft, non-distended Integumentary: normal Extremities: no cyanosis, no clubbing, edema (Trace edema in LLE), other (Right AKA) Musculoskeletal: no deformities, ROM normal normal mental status, non-focal exam mood appropriate, affect normal Results - Laboratory Findings CBC and BMP: 08/29/17 06:05 08/29/17 06:05 PT/INR, D-dimer PT 14.5 Seconds (9.4-12.1) H 08/27/17 13:29 Abnormal lab findings: Abnormal lab results WBC 15.4 K/mcL (4.3-11.1) H 08/29/17 06:05 Hgb 11.2 g/dL (12.9-16.9) L 08/29/17 06:05 Hct 36.1 % (37.5-50.1) L 08/29/17 06:05 MCH 26.7 pg (28.0-33.3) L 08/29/17 06:05 MCHC 31.0 g/dL (31.6-35.5) L 08/29/17 06:05 Plt Count 402 K/mcL (140-400) H 08/29/17 06:05 MPV 9.1 fL (9.4-12.4) L 08/29/17 06:05 Neutrophils # 14.2 K/mcL (1.6-8.9) H 08/29/17 06:05 PT 14.5 Seconds (9.4-12.1) H 08/27/17 13:29 Glucose 140 mg/dL (70-99) H 08/29/17 06:05 Lactic Acid 2.7 mmol/L (0.5-2.2) H 08/27/17 14:08 B-Natriuretic Peptide 109 pg/mL (0-100) H 08/27/17 13:29 Serum Total Protein 10.5 g/dL (6.0-8.3) H 08/27/17 13:29 Albumin 2.9 g/dL (3.5-5.0) L 08/27/17 13:29 Globulin 7.6 g/dL (2.4-3.5) H 08/27/17 13:29 Albumin/Globulin Ratio 0.4 (1.1-2.2) L 08/27/17 13:29 - Microbiology Findings Microbiology Findings: Microbiology, Last 48 Hours 08/27/17 21:37 Sputum Culture - Preliminary Sputum - Clinical Findings Intake & Output: Intake & Output 08/28/17 08/29/17 08/29/17 23:59 07:59 15:59 Intake Total 220 / 220 Balance 220 / 220 Weight 78.1 kg Consult Discharge Plan - Plan Referrals: Alessia Burgos MD [Primary Care Provider] - 09/05/17 10:30 am <Skye Murray - Last Filed: 08/29/17 16:33> Date of Encounter: 08/29/17 Objective PUL Vital signs: Last Vital Signs Temp 97.8 F 08/29/17 15:31 Pulse 74 08/29/17 16:07 Resp 19 08/29/17 15:31 BP 103/60 08/29/17 15:31 Pulse Ox 91 08/29/17 15:31 Results - Laboratory Findings CBC and BMP: 08/29/17 06:05 08/29/17 06:05 PT/INR, D-dimer PT 14.5 Seconds (9.4-12.1) H 08/27/17 13:29 Abnormal lab findings: Abnormal lab results WBC 15.4 K/mcL (4.3-11.1) H 08/29/17 06:05 Hgb 11.2 g/dL (12.9-16.9) L 08/29/17 06:05 Hct 36.1 % (37.5-50.1) L 08/29/17 06:05 MCH 26.7 pg (28.0-33.3) L 08/29/17 06:05 MCHC 31.0 g/dL (31.6-35.5) L 08/29/17 06:05 Plt Count 402 K/mcL (140-400) H 08/29/17 06:05 MPV 9.1 fL (9.4-12.4) L 08/29/17 06:05 Neutrophils # 14.2 K/mcL (1.6-8.9) H 08/29/17 06:05 PT 14.5 Seconds (9.4-12.1) H 08/27/17 13:29 Glucose 140 mg/dL (70-99) H 08/29/17 06:05 Lactic Acid 2.7 mmol/L (0.5-2.2) H 08/29/17 10:49 B-Natriuretic Peptide 109 pg/mL (0-100) H 08/27/17 13:29 Serum Total Protein 10.5 g/dL (6.0-8.3) H 08/27/17 13:29 Albumin 2.9 g/dL (3.5-5.0) L 08/27/17 13:29 Globulin 7.6 g/dL (2.4-3.5) H 08/27/17 13:29 Albumin/Globulin Ratio 0.4 (1.1-2.2) L 08/27/17 13:29 - Microbiology Findings Microbiology Findings: Microbiology, Last 48 Hours 08/27/17 21:37 Sputum Culture - Preliminary Sputum Gram Negative Lanre Gram Positive Cocci 08/28/17 11:15 Acid Fast Stain - Final Sputum 08/27/17 21:37 Acid Fast Stain - Final Sputum - Clinical Findings Intake & Output: Intake & Output 08/29/17 08/29/17 08/29/17 07:59 15:59 23:59 Intake Total 920 / 920 Output Total 550 / 550 Balance 370 / 370 Weight 78.1 kg - Attending Attestation I examined this patient and my medical decision-making was reviewed with the Resident Physician. I agree with the documented findings, disposition and treatment plan as described except to the extent set forth below. Patient seen and examined. Labs, radiology, chart personally reviewed. 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 Overall patient is feeling better and we need follow-up AFBs smears. Explained to the patient and also the nurse to make sure we have at least 3 AFB smears. Continue current treatment since patient is improving. Cardiovascular: stable
[2017-08-29] MEDS: MethylPREDNISolone 40 MG/ML VIAL IVP SCH ×2 (08:48→19:10)
[2017-08-29] MEDS: Aspirin Enteric Coated 81 MG Tablet PO SCH (08:49)
[2017-08-29] MEDS: Azithromycin 250 MG TABLET PO SCH (08:49)
[2017-08-29] MEDS: Furosemide 20 MG TABLET PO SCH (08:49)
--- NOTE | 2017-08-29 09:32 | Internal Med Progress Note ---
Date of Encounter: 08/29/17 Time of Encounter: 10:46 - Assessment and plan (1) Acute respiratory failure with hypoxia Current Visit: Yes Status: Acute Assessment and plan: Pt does not use home O2. Pt provided with nasal canula at 2L, saturating at 92-93. Presenting with non-bloody cough, chest pain, and fevers suggestive of acute infection on chronic COPD. Most recent CTA of lung shows hyperinflation, bronchiectasis, hilarlymphadenopathy, and multifocal consolidations. Continue Duoneb, Spiriva. Continue Azithromycin. Bronchoscopy being considered by Pulmonary team if pt shows little clinical improvement. (2) Tuberculoid infection Current Visit: Yes Status: Suspected Assessment and plan: As noted above, levofloxacin changed to azithromycin. Pulmonology consulted sputum sample cultured - negative Awaiting blood cultures. (3) COPD (chronic obstructive pulmonary disease) Current Visit: Yes Status: Acute Assessment and plan: Non-bloody cough, chest pain, and fevers suggestive of acute infection on chronic COPD. Most recent CTA of lung shows hyperinflation, bronchiectasis, hilarlymphadenopathy, and multifocal consolidations. Given methyprednisolone, 3L nasal cannula available, pt sitting comfortably on room air. Continue Duoneb, Spiriva Qualifiers: COPD type: COPD with acute exacerbation Qualified Code(s): J44.1 - Chronic obstructive pulmonary disease with (acute) exacerbation (4) CHF (congestive heart failure) Current Visit: Yes Status: Acute Assessment and plan: History of CHF, currently very mild symptoms. BNP 109. Continue Coreg, Sotalol, Lasix, Plavix, hold Aldactone due to lower BPs. Three days no edema. Qualifiers: Congestive heart failure type: systolic Congestive heart failure chronicity : chronic Qualified Code(s): I50.22 - Chronic systolic (congestive) heart failure (5) CAD (coronary artery disease) Current Visit: Yes Status: Chronic Assessment and plan: RI at 44; v-tac history. Pacemaker/defibrilator place. Troponin negative. Continue Post-RI medications: Aspirin, bb, diuretic, not-currently on statin. Qualifiers: Coronary Disease-Associated Artery/Lesion type: [place] artery [place] vs. transplanted heart: [place] heart Associated angina: without angina Qualified Code(s): I25.10 - Atherosclerotic heart disease of [place] coronary artery without angina pectoris (6) HTN (hypertension) Current Visit: Yes Status: Chronic Assessment and plan: Patient to continue antihypertensive medications: bb, lasix. Qualifiers: Hypertension type: essential hypertension Qualified Code(s): I10 - Essential (primary) hypertension (7) DVT prophylaxis Current Visit: Yes Status: Acute Assessment and plan: On Lovenox 40mg SQ - Subjective Interval history: Patient reports long periods without cough or feeling of chest congestion. Does not feel warm, denies episodes of swelling. Able to urinate well. - Constitutional Vitals: Temp Pulse Resp BP Pulse Ox 97.5 F L 60 16 91/59 95 08/29/17 07:17 08/29/17 09:10 08/29/17 07:17 08/29/17 07:17 08/29/17 07:17 General appearance: Present: A&O X 3, no acute distress - Respiratory Respiratory exam: Present: decreased breath sounds Additional comments: L sided breath sounds diminished, right side CTA., mild rhonchi bilaterally. - Cardiovascular Cardiovascular exam: Present: RRR, +S1, +S2. Absent: systolic murmur Additional comments: no edema in L leg, below knee amputation R leg - Extremities Exam Extremities exam: Present: warm. Absent: tenderness Additional comments: R-sided below knee amputation Internal Medicine: Result - Labs CBC & Chem 7: 08/29/17 06:05 08/29/17 06:05 Labs: Short CBC 08/29/17 Range/Units 06:05 WBC 15.4 H (4.3-11.1) K/mcL Hgb 11.2 L (12.9-16.9) g/dL Hct 36.1 L (37.5-50.1) % Plt Count 402 H (140-400) K/mcL Neutrophils # 14.2 H (1.6-8.9) K/mcL BMP 08/29/17 06:05 Sodium 137 Potassium 3.8 Chloride 106 Carbon Dioxide 25 BUN 12 Creatinine 0.80 Glucose 140 H Calcium 9.2 - ABG Interpretation ABG results: PT/INR, D-dimer PT 14.5 Seconds (9.4-12.1) H 08/27/17 13:29 Consult Discharge Plan - Plan Referrals: Alessia Burgos MD [Primary Care Provider] - 09/05/17 10:30 am
[2017-08-29] MEDS: Tiotropium 18 MCG inhalation IH SCH (12:03)
[2017-08-29] MEDS: Ipratropium/Albuterol Neb 3 ML IH PRN (12:03)
[2017-08-29] MEDS: Ipratropium/Albuterol Neb 3 ML IH SCH ×3 (16:39→23:29)
--- NOTE | 2017-08-29 17:19 | Event Note ---
Date of Encounter: 08/29/17 Time of Encounter: 10:55 I examined this patient on 08/29/17 and my medical decision-making was reviewed with the Resident Physician. I agree with the documented findings, disposition and treatment plan as described except to the extent set forth below. 62 M with tobacco abuse, hx of pulmonary nodules, COPD, CHF, CAD, HTN He is admitted and being managed for Pneumonia, r/o tuberculous infection. He has no new complains, Pulmonology is following. He has no new complains Physical exam unremarkable, s/p RLE AKA. Sputum with GNR and GPC-On Zosyn/Azithroycmin. AFB smear negative X2, PPD no induration till date Continue current management, await final sputum sensitivity, low risk for MRSA Rest of details as in resident physicians documentation
[2017-08-29] MEDS: clonazePAM 1 MG TABLET PO SCH (21:54)
[2017-08-30] MEDS: Piperacillin/Tazobactam 3.375 GM in D5% in Water (Mini-Bag+) 100 ML IVPB SCH ×3 (03:39→18:21)
[2017-08-30] MEDS: Ipratropium/Albuterol Neb 3 ML IH SCH ×4 (03:47→21:02)
[2017-08-30 04:38] LABS: BUN/Creatinine Ratio 15 (6-26); Blood Urea Nitrogen 12 mg/dL (8-26); Calcium 9.4 mg/dL (8.6-10.8); Carbon Dioxide 26 mEq/L (19-29); Chloride 106 mEq/L (98-109); Glucose 127 mg/dL (70-99); Osmolality,Calculated 291 (280-300); Potassium 4.7 mEq/L (3.5-4.5); Sodium 140 mEq/L (136-145); eGFR For African Americans > 60 (> 60); eGFR For Non-African Americans > 60 (> 60)
[2017-08-30 04:39] LABS: Basophils % 0.1 %; Hematocrit 35.3 % (37.5-50.1); Hemoglobin 11.3 g/dL (12.9-16.9); Immature Granulocytes % 0.6 % (0-4); Lymphocytes # 1.2 K/mcL (0.6-4.6); Lymphocytes % 4.9 %; Mean Corpuscular Volume 84.4 fL (83.0-100.0); Mean Platelet Volume 9.2 fL (9.4-12.4); Monocytes # 0.5 K/mcL (0.0-1.3); Monocytes % 2.2 %; Neutrophils # 21.7 K/mcL (1.6-8.9); Platelet Count 456 K/mcL (140-400); Red Blood Count 4.18 M/mcL (4.19-5.50); Red Cell Distribution Width 14.7 % (11.5-14.5); Segmented Neutrophils % 92.2 %
[2017-08-30] MEDS: *HR* OxyCODONE Immed Rel 15 MG TABLET PO PRN ×3 (05:20→21:22)
[2017-08-30] MEDS: *HR* Enoxaparin 40 MG/0.4 ML SYRINGE SQ SCH (05:20)
[2017-08-30 06:17] LABS: Platelet Estimate Increased (Normal)
[2017-08-30] MEDS: Tiotropium 18 MCG inhalation IH SCH (08:10)
[2017-08-30] MEDS: Furosemide 20 MG TABLET PO SCH (08:26)
[2017-08-30] MEDS: Azithromycin 250 MG TABLET PO SCH (08:26)
[2017-08-30] MEDS: Aspirin Enteric Coated 81 MG Tablet PO SCH (08:26)
[2017-08-30] MEDS: predniSONE 20 MG TABLET PO SCH (08:27)
[2017-08-30] MEDS: *HR* OxyCODONE ER (12 HR) 20 MG TABLET PO SCH ×2 (08:27→16:37)
--- NOTE | 2017-08-30 08:43 | Internal Med Progress Note ---
<Asa Cochran T - Last Filed: 08/30/17 12:33> Date of Encounter: 08/30/17 - Constitutional Vitals: Temp Pulse Resp BP Pulse Ox 97.6 F 64 16 102/65 95 08/30/17 10:48 08/30/17 11:34 08/30/17 10:48 08/30/17 10:48 08/30/17 10:48 Internal Medicine: Result - Labs CBC & Chem 7: 08/30/17 04:14 08/30/17 04:14 Labs: Short CBC 08/30/17 Range/Units 04:14 WBC 23.5 H D (4.3-11.1) K/mcL Hgb 11.3 L (12.9-16.9) g/dL Hct 35.3 L (37.5-50.1) % Plt Count 456 H (140-400) K/mcL Neutrophils # 21.7 H (1.6-8.9) K/mcL BMP 08/30/17 04:14 Sodium 140 Potassium 4.7 H Chloride 106 Carbon Dioxide 26 BUN 12 Creatinine 0.80 Glucose 127 H Calcium 9.4 Cardiac Enzymes 08/30/17 Range/Units 04:14 Troponin I 0.00 (0-0.03) ng/mL - ABG Interpretation ABG results: PT/INR, D-dimer PT 14.5 Seconds (9.4-12.1) H 08/27/17 13:29 Consult Discharge Plan - Plan Referrals: Alessia Burgos MD [Primary Care Provider] - 09/05/17 10:30 am - Attending Attestation I examined this patient on 08/30/17 and my medical decision-making was reviewed with the Resident Physician. I agree with the documented findings, disposition and treatment plan as described except to the extent set forth below. 62 M with tobacco abuse, hx of pulmonary nodules, COPD, CHF, CAD, HTN He is admitted and being managed for Pneumonia, r/o tuberculous infection. He has no new complains, Pulmonology is following. He has no new complains Physical exam Left lung base rhonchi, s/p RLE AKA. Sputum with GNR and GPC-On Zosyn/Azithroycmin. AFB smear negative X2, PPD no induration till date Continue current management, await final sputum sensitivity, low risk for MRSA Rest of details as in resident physicians documentation <Ladarius Smith - Last Filed: 08/30/17 14:51> Date of Encounter: 08/30/17 Time of Encounter: 09:45 - Assessment and plan (1) Acute respiratory failure with hypoxia Current Visit: Yes Status: Acute Assessment and plan: Pt does not use home O2. Given 2-3L nasal cannula; now on room air. Presenting with non-bloody cough, chest pain, and fevers suggestive of acute infection on chronic COPD. Most recent CTA of lung shows hyperinflation, bronchiectasis, hilarlymphadenopathy, and multifocal consolidations. Continue respiratory therapy q6hrs. Continue Azithromycin/Zosyn Therapeutic bronchoscopy by pulmonary team if pt shows little clinical improvement. Pt has elevated WBC, however, downtrending lactic acid, normotensive, afebrile. Awaiting final AFB smears. (2) Tuberculoid infection Current Visit: Yes Status: Suspected Assessment and plan: As noted above, levofloxacin changed to azithromycin. Pulmonology consulted sputum sample cultured - negative Preliminary blood cultures show no growth. (3) COPD (chronic obstructive pulmonary disease) Current Visit: Yes Status: Acute Assessment and plan: Non-bloody cough, chest pain, and fevers suggestive of acute infection on chronic COPD. Most recent CTA of lung shows hyperinflation, bronchiectasis, hilarlymphadenopathy, and multifocal consolidations. Given methyprednisolone, 3L nasal cannula available, pt sitting comfortably on room air. Continue Duoneb, Spiriva Qualifiers: COPD type: COPD with acute exacerbation Qualified Code(s): J44.1 - Chronic obstructive pulmonary disease with (acute) exacerbation (4) CHF (congestive heart failure) Current Visit: Yes Status: Acute Assessment and plan: History of CHF, currently very mild symptoms. BNP 109. Continue Coreg, Sotalol, Lasix, Plavix, hold Aldactone due to lower BPs. Three days no edema, BNP unremarkable. Qualifiers: Congestive heart failure type: systolic Congestive heart failure chronicity : chronic Qualified Code(s): I50.22 - Chronic systolic (congestive) heart failure (5) CAD (coronary artery disease) Current Visit: Yes Status: Chronic Qualifiers: Coronary Disease-Associated Artery/Lesion type: [place] artery [place] vs. transplanted heart: [place] heart Associated angina: without angina Qualified Code(s): I25.10 - Atherosclerotic heart disease of [place] coronary artery without angina pectoris (6) HTN (hypertension) Current Visit: Yes Status: Chronic Assessment and plan: Patient to continue antihypertensive medications: bb, lasix. Qualifiers: Hypertension type: essential hypertension Qualified Code(s): I10 - Essential (primary) hypertension (7) DVT prophylaxis Current Visit: Yes Status: Acute Assessment and plan: On Lovenox 40mg SQ - Subjective Interval history: Mr. Beltran sitting comfortably, without cough, on room air. Endorses longer periods of absent cough, q4hr RT is beneficial but he feels it is disrupting his sleep. Denies productive cough, swelling, or fever. - Constitutional Vitals: Temp Pulse Resp BP Pulse Ox 97.5 F L 67 18 100/67 93 08/30/17 07:45 08/30/17 08:35 08/30/17 07:45 08/30/17 07:45 08/30/17 07:45 General appearance: Present: A&O X 3, no acute distress - Head Head exam: Present: atraumatic, normal inspection - Respiratory Respiratory exam: Present: decreased breath sounds, rhonchi (left lung base posteriorly) - Cardiovascular Cardiovascular exam: Present: RRR, +S1, +S2. Absent: systolic murmur, tachycardia - Extremities Exam Extremities exam: Present: warm. Absent: calf tenderness Additional comments: right below knee amputation, with prosthesis Internal Medicine: Result - Labs CBC & Chem 7: 08/30/17 04:14 08/30/17 04:14 Labs: Short CBC 08/30/17 Range/Units 04:14 WBC 23.5 H D (4.3-11.1) K/mcL Hgb 11.3 L (12.9-16.9) g/dL Hct 35.3 L (37.5-50.1) % Plt Count 456 H (140-400) K/mcL Neutrophils # 21.7 H (1.6-8.9) K/mcL BMP 08/30/17 04:14 Sodium 140 Potassium 4.7 H Chloride 106 Carbon Dioxide 26 BUN 12 Creatinine 0.80 Glucose 127 H Calcium 9.4 Cardiac Enzymes 08/30/17 Range/Units 04:14 Troponin I 0.00 (0-0.03) ng/mL - ABG Interpretation ABG results: PT/INR, D-dimer PT 14.5 Seconds (9.4-12.1) H 08/27/17 13:29
--- NOTE | 2017-08-30 09:31 | Pulmonology Progress Note ---
<Emerson Arrieta - Last Filed: 08/30/17 09:28> Date of Encounter: 08/30/17 Time of Encounter: 09:28 Assessment and Plan (1) Tuberculoid infection Current Visit: Yes Status: Suspected Sputum culture growing GNR and GPC, sensitivity pending. WBC up to 23.5 AFB Smear negative x 2 Patient remained afebrile and WNL for HR, BP, RR Azithromycin Day 3, Zosyn Day 3 Continue antibiotics Subjective Principal diagnosis: Pneumonia Interval history: The patient was resting comfortably in bed at the time of examination. He says that overnight he was not able to sleep because of the staff coming into and out of his room, but that he is feeling better regardless. He is not coughing as much as he was previously, and when he does, it is no longer productive in nature. He denied any problems overnight. Objective PUL Vital signs: Last Vital Signs Temp 97.5 F L 08/30/17 07:45 Pulse 67 08/30/17 08:35 Resp 18 08/30/17 07:45 BP 100/67 08/30/17 07:45 Pulse Ox 93 08/30/17 07:45 General appearance: no acute distress Eyes: nonicteric ENT: oropharynx moist Neck: supple Effort: normal Auscultation: left: rales (Middle to lower lobe), right: clear Percussion: bilateral: not dull Cardiovascular: regular rate and rhythm Gastrointestinal: normoactive bowel sounds, non-distended Integumentary: normal Extremities: no cyanosis, no edema, no clubbing, other (Right AKA) Musculoskeletal: no deformities, ROM normal normal mental status, non-focal exam mood appropriate, affect normal Results - Laboratory Findings CBC and BMP: 08/30/17 04:14 08/30/17 04:14 PT/INR, D-dimer PT 14.5 Seconds (9.4-12.1) H 08/27/17 13:29 Abnormal lab findings: Abnormal lab results WBC 23.5 K/mcL (4.3-11.1) H D 08/30/17 04:14 RBC 4.18 M/mcL (4.19-5.50) L 08/30/17 04:14 Hgb 11.3 g/dL (12.9-16.9) L 08/30/17 04:14 Hct 35.3 % (37.5-50.1) L 08/30/17 04:14 MCH 27.0 pg (28.0-33.3) L 08/30/17 04:14 RDW 14.7 % (11.5-14.5) H 08/30/17 04:14 Plt Count 456 K/mcL (140-400) H 08/30/17 04:14 MPV 9.2 fL (9.4-12.4) L 08/30/17 04:14 Neutrophils # 21.7 K/mcL (1.6-8.9) H 08/30/17 04:14 Platelet Estimate Increased (Normal) H 08/30/17 04:14 PT 14.5 Seconds (9.4-12.1) H 08/27/17 13:29 Potassium 4.7 mEq/L (3.5-4.5) H 08/30/17 04:14 Glucose 127 mg/dL (70-99) H 08/30/17 04:14 B-Natriuretic Peptide 109 pg/mL (0-100) H 08/27/17 13:29 Serum Total Protein 10.5 g/dL (6.0-8.3) H 08/27/17 13:29 Albumin 2.9 g/dL (3.5-5.0) L 08/27/17 13:29 Globulin 7.6 g/dL (2.4-3.5) H 08/27/17 13:29 Albumin/Globulin Ratio 0.4 (1.1-2.2) L 08/27/17 13:29 - Microbiology Findings Microbiology Findings: Microbiology, Last 48 Hours 08/27/17 21:37 Sputum Culture - Preliminary Sputum Gram Negative Lanre Gram Positive Cocci 08/28/17 11:15 Acid Fast Stain - Final Sputum 08/27/17 21:37 Acid Fast Stain - Final Sputum - Clinical Findings Intake & Output: Intake & Output 08/29/17 08/30/17 08/30/17 23:59 07:59 15:59 Intake Total 460 / 460 Output Total 500 / 500 Balance -40 / -40 Weight 78.7 kg Consult Discharge Plan - Plan Referrals: Alessia Burgos MD [Primary Care Provider] - 09/05/17 10:30 am <Skye Murray - Last Filed: 08/30/17 10:48> Date of Encounter: 08/30/17 Objective PUL Vital signs: Last Vital Signs Temp 97.5 F L 08/30/17 07:45 Pulse 67 08/30/17 08:35 Resp 18 08/30/17 07:45 BP 100/67 08/30/17 07:45 Pulse Ox 93 08/30/17 07:45 Results - Laboratory Findings CBC and BMP: 08/30/17 04:14 08/30/17 04:14 PT/INR, D-dimer PT 14.5 Seconds (9.4-12.1) H 08/27/17 13:29 Abnormal lab findings: Abnormal lab results WBC 23.5 K/mcL (4.3-11.1) H D 08/30/17 04:14 RBC 4.18 M/mcL (4.19-5.50) L 08/30/17 04:14 Hgb 11.3 g/dL (12.9-16.9) L 08/30/17 04:14 Hct 35.3 % (37.5-50.1) L 08/30/17 04:14 MCH 27.0 pg (28.0-33.3) L 08/30/17 04:14 RDW 14.7 % (11.5-14.5) H 08/30/17 04:14 Plt Count 456 K/mcL (140-400) H 08/30/17 04:14 MPV 9.2 fL (9.4-12.4) L 08/30/17 04:14 Neutrophils # 21.7 K/mcL (1.6-8.9) H 08/30/17 04:14 Platelet Estimate Increased (Normal) H 08/30/17 04:14 PT 14.5 Seconds (9.4-12.1) H 08/27/17 13:29 Potassium 4.7 mEq/L (3.5-4.5) H 08/30/17 04:14 Glucose 127 mg/dL (70-99) H 08/30/17 04:14 B-Natriuretic Peptide 109 pg/mL (0-100) H 08/27/17 13:29 Serum Total Protein 10.5 g/dL (6.0-8.3) H 08/27/17 13:29 Albumin 2.9 g/dL (3.5-5.0) L 08/27/17 13:29 Globulin 7.6 g/dL (2.4-3.5) H 08/27/17 13:29 Albumin/Globulin Ratio 0.4 (1.1-2.2) L 08/27/17 13:29 - Microbiology Findings Microbiology Findings: Microbiology, Last 48 Hours 08/27/17 21:37 Sputum Culture - Preliminary Sputum Gram Negative Lanre Gram Positive Cocci 08/28/17 11:15 Acid Fast Stain - Final Sputum 08/27/17 21:37 Acid Fast Stain - Final Sputum - Clinical Findings Intake & Output: Intake & Output 08/29/17 08/30/17 08/30/17 23:59 07:59 15:59 Intake Total 460 / 460 240 / 240 Output Total 500 / 500 Balance -40 / -40 240 / 240 Weight 78.7 kg - Attending Attestation I examined this patient and my medical decision-making was reviewed with the Resident Physician. I agree with the documented findings, disposition and treatment plan as described except to the extent set forth below. Patient seen and examined. Labs, radiology, chart personally reviewed. Agree with resident's history and physical, assessment, plan with following comments: SKIN CARE CONSULTANT: Patient follows commands, Pulmonary: Acceptable oxygenation and ventilation. Discussed with primary team and airborne isolation can be canceled. I suspect bacterial pneumonia and follow up on the sputum cultures. Cardiovascular: stable
[2017-08-30 17:21] LABS: QuantiFERON Mitogen minus NIL >10.00 IU/mL
[2017-08-30] MEDS: Melatonin 3 MG TABLET PO SCH (20:38)
[2017-08-30] MEDS: clonazePAM 1 MG TABLET PO SCH (20:38)
[2017-08-31] MEDS: *HR* OxyCODONE ER (12 HR) 20 MG TABLET PO SCH ×3 (00:30→15:26)
[2017-08-31] MEDS: Ipratropium/Albuterol Neb 3 ML IH SCH ×4 (03:14→21:56)
[2017-08-31] MEDS: Piperacillin/Tazobactam 3.375 GM in D5% in Water (Mini-Bag+) 100 ML IVPB SCH ×3 (03:48→19:57)
[2017-08-31 05:27] LABS: Basophils % 0.1 %; Eosinophils % 0.1 %; Hematocrit 35.1 % (37.5-50.1); Hemoglobin 11.1 g/dL (12.9-16.9); Immature Granulocytes % 0.5 % (0-4); Lymphocytes # 2.4 K/mcL (0.6-4.6); Lymphocytes % 17.3 %; Mean Corpuscular HGB Conc 31.6 g/dL (31.6-35.5); Mean Corpuscular Volume 85.4 fL (83.0-100.0); Mean Platelet Volume 9.2 fL (9.4-12.4); Monocytes # 0.9 K/mcL (0.0-1.3); Monocytes % 6.9 %; Neutrophils # 10.3 K/mcL (1.6-8.9); Platelet Count 414 K/mcL (140-400); Red Blood Count 4.11 M/mcL (4.19-5.50); Red Cell Distribution Width 15.1 % (11.5-14.5); Segmented Neutrophils % 75.1 %
[2017-08-31 05:49] LABS: BUN/Creatinine Ratio 17 (6-26); Blood Urea Nitrogen 12 mg/dL (8-26); Calcium 8.7 mg/dL (8.6-10.8); Carbon Dioxide 27 mEq/L (19-29); Chloride 108 mEq/L (98-109); Glucose 95 mg/dL (70-99); Osmolality,Calculated 290 (280-300); Potassium 3.7 mEq/L (3.5-4.5); Sodium 140 mEq/L (136-145); eGFR For African Americans > 60 (> 60); eGFR For Non-African Americans > 60 (> 60)
[2017-08-31] MEDS: *HR* Enoxaparin 40 MG/0.4 ML SYRINGE SQ SCH (06:38)
[2017-08-31] MEDS: Tiotropium 18 MCG inhalation IH SCH (07:38)
[2017-08-31] MEDS: Aspirin Enteric Coated 81 MG Tablet PO SCH (08:51)
[2017-08-31] MEDS: Furosemide 20 MG TABLET PO SCH (08:51)
[2017-08-31] MEDS: predniSONE 20 MG TABLET PO SCH (08:52)
[2017-08-31] MEDS: Azithromycin 250 MG TABLET PO SCH (08:52)
[2017-08-31] MEDS: *HR* OxyCODONE Immed Rel 15 MG TABLET PO PRN ×2 (11:17→20:02)
--- NOTE | 2017-08-31 15:58 | Internal Med Progress Note ---
Date of Encounter: 08/31/17 Time of Encounter: 11:00 - Assessment and plan (1) Tuberculoid infection Current Visit: Yes Status: Suspected Assessment and plan: Acute Hypoxic respitatory failure - secondary to COPD exacerbation - h/o chronic aspiration pneumonitis Levofloxacin changed to Azithromycin, continue IV Zosyn, Duoneb Pulmonology consult - appreciate input Sputum for AFB - negative Blood cultures - negative Sputum cultures - gram-negative bacilli, staph aureus CTA Chest - hyperinflation, bronchiectasis, hilarlymphadenopathy, and multifocal consolidations Speech therapy has evaluated patient in the past Cardiac tele, pulse ox, labs in a.m., monitor closely (2) COPD (chronic obstructive pulmonary disease) Current Visit: Yes Status: Acute Assessment and plan: Acute exacerbation of COPD - symptoms slowly improving CTA chest - hyperinflation, bronchiectasis, hilarlymphadenopathy, and multifocal consolidations Continue Duoneb, Spiriva, Azithromycin, O2 via NC, Prednisone Plan as above Qualifiers: COPD type: COPD with acute exacerbation Qualified Code(s): J44.1 - Chronic obstructive pulmonary disease with (acute) exacerbation (3) CHF (congestive heart failure) Current Visit: Yes Status: Acute Assessment and plan: CHF unspecified - not in exacerbation BNP 109 Echocardiogram - pending Continue Coreg, Sotalol, Lasix, Plavix Qualifiers: Congestive heart failure type: systolic Congestive heart failure chronicity : chronic Qualified Code(s): I50.22 - Chronic systolic (congestive) heart failure (4) CAD (coronary artery disease) Current Visit: Yes Status: Chronic Assessment and plan: Coronary artery disease, stable H/o VT at 44; v-tach history - s/p Pacemaker/defibrilator Troponin - negative Continue Aspirin, Lasix, Coreg, Lipitor Qualifiers: Coronary Disease-Associated Artery/Lesion type: [place] artery [place] vs. transplanted heart: [place] heart Associated angina: without angina Qualified Code(s): I25.10 - Atherosclerotic heart disease of [place] coronary artery without angina pectoris (5) HTN (hypertension) Current Visit: Yes Status: Chronic Assessment and plan: Essential hypertension, controlled, monitor Continue Coreg, Lasix Qualifiers: Hypertension type: essential hypertension Qualified Code(s): I10 - Essential (primary) hypertension (6) DVT prophylaxis Current Visit: Yes Status: Acute Assessment and plan: Continue Lovenox 40mg SQ - Time Spent With Patient 25 - 35 minutes - Subjective Interval history: Examined this morning. Patient is awake and alert. Not in any distress. Tolerating oral diet. Denies chest pain or shortness of breath. No fever. Hemodynamically stable. Patient states he feels better. States his cough has improved. No other acute events or complaints. Acid-fast stain of sputum is negative on 3 samples. Sputum culture is positive for gram-negative rods and staph aureus. Quantiferon his pending. Pulmonology following. - Constitutional Vitals: Temp Pulse Resp BP Pulse Ox 97.6 F 64 17 105/70 95 08/31/17 11:19 08/31/17 15:29 08/31/17 15:29 08/31/17 15:29 08/31/17 15:29 General appearance: Present: cooperative, A&O X 3, pleasant, no acute distress, answers questions appropriately - Head Head exam: Present: atraumatic - Eye Eye exam: Present: EOMI - ENT ENT exam: Present: mucous membranes moist - Respiratory Respiratory exam: Present: rales (Mild bilateral basilar). Absent: accessory muscle use, chest wall tenderness, rhonchi, wheezes, tachypnea - Cardiovascular Cardiovascular exam: Present: RRR, +S1, +S2 - GI/Abdominal GI/Abdominal exam: Present: soft. Absent: distended, firm, guarding, tenderness - Extremities Exam Extremities exam: Present: radial pulses palpable and symmetrical. Absent: calf tenderness, cyanotic, pedal edema Additional comments: Right AKA - Neurological Exam Neurological exam: Present: alert, CN II-XII intact, oriented X3, no focal deficits. Absent: facial droop, speech deficit Internal Medicine: Result - Labs CBC & Chem 7: 08/31/17 05:06 08/31/17 05:06 Labs: Short CBC 08/31/17 Range/Units 05:06 WBC 13.7 H (4.3-11.1) K/mcL Hgb 11.1 L (12.9-16.9) g/dL Hct 35.1 L (37.5-50.1) % Plt Count 414 H (140-400) K/mcL Neutrophils # 10.3 H (1.6-8.9) K/mcL BMP 08/31/17 05:06 Sodium 140 Potassium 3.7 D Chloride 108 Carbon Dioxide 27 BUN 12 Creatinine 0.72 Glucose 95 Calcium 8.7 - ABG Interpretation ABG results: PT/INR, D-dimer PT 14.5 Seconds (9.4-12.1) H 08/27/17 13:29 Consult Discharge Plan - Plan Referrals: Alessia Burgos MD [Primary Care Provider] - 09/05/17 10:30 am
[2017-08-31] MEDS: Melatonin 3 MG TABLET PO SCH (19:58)
[2017-08-31] MEDS: clonazePAM 1 MG TABLET PO SCH (19:59)
[2017-09-01] MEDS: *HR* OxyCODONE ER (12 HR) 20 MG TABLET PO SCH ×2 (00:03→07:46)
[2017-09-01 03:25] LABS: Basophils % 0.1 %; Eosinophils % 0.3 %; Hematocrit 36.6 % (37.5-50.1); Hemoglobin 11.5 g/dL (12.9-16.9); Immature Granulocytes % 0.6 % (0-4); Lymphocytes % 16.8 %; Mean Corpuscular HGB Conc 31.4 g/dL (31.6-35.5); Mean Corpuscular Hemoglobin 26.9 pg (28.0-33.3); Mean Corpuscular Volume 85.5 fL (83.0-100.0); Mean Platelet Volume 9.2 fL (9.4-12.4); Monocytes % 6.9 %; Platelet Count 435 K/mcL (140-400); Red Blood Count 4.28 M/mcL (4.19-5.50); Segmented Neutrophils % 75.3 %
[2017-09-01 03:26] LABS: Lymphocytes # 1.9 K/mcL (0.6-4.6); Monocytes # 0.8 K/mcL (0.0-1.3); Neutrophils # 8.5 K/mcL (1.6-8.9)
[2017-09-01] MEDS: Ipratropium/Albuterol Neb 3 ML IH SCH ×2 (03:42→11:20)
[2017-09-01] MEDS: Piperacillin/Tazobactam 3.375 GM in D5% in Water (Mini-Bag+) 100 ML IVPB SCH ×2 (03:58→10:34)
[2017-09-01] MEDS: *HR* Enoxaparin 40 MG/0.4 ML SYRINGE SQ SCH (06:27)
[2017-09-01] MEDS: predniSONE 20 MG TABLET PO SCH (07:45)
[2017-09-01] MEDS: Aspirin Enteric Coated 81 MG Tablet PO SCH (07:46)
[2017-09-01] MEDS: Furosemide 20 MG TABLET PO SCH (07:46)
[2017-09-01] MEDS: Azithromycin 250 MG TABLET PO SCH (07:46)
[2017-09-01] MEDS: *HR* OxyCODONE Immed Rel 15 MG TABLET PO PRN (10:35)
[2017-09-01] MEDS: Tiotropium 18 MCG inhalation IH SCH (11:20)
[2017-09-01 12:00] VITALS: BP 93/67
--- NOTE | 2017-09-01 14:44 | Discharge Summary ---
Date of Encounter: 09/01/17 Time of Encounter: 10:00 - Discharge Diagnosis (1) Tuberculoid infection Priority: Primary Status: Suspected Comments: Acute Hypoxic respitatory failure - secondary to COPD exacerbation - h/o chronic aspiration pneumonitis Discharge home with Cipro, continue Duoneb Pulmonology consult - appreciate input - discussed with Dr. Murray, advised to discharge with antibiotics and follow-up as outpatien, patient will need outpatient CT scan of chest in one month Sputum for AFB - negative Blood cultures - negative Sputum cultures - gram-negative bacilli - sensitivity pending, staph aureus - sensitive to Levaquin CTA Chest - hyperinflation, bronchiectasis, hilarlymphadenopathy, and multifocal consolidations Speech therapy has evaluated patient in the past Return if symptoms worsen, follow up with pulmonology and PCP as outpatient Will need to follow up with sputum culture sensitivity results (2) COPD (chronic obstructive pulmonary disease) Priority: Primary Status: Acute Comments: Acute exacerbation of COPD - symptoms now improved CTA chest - hyperinflation, bronchiectasis, hilarlymphadenopathy, and multifocal consolidations Continue Duoneb, Spiriva, Azithromycin, O2 via NC, Prednisone Qualifiers: COPD type: COPD with acute exacerbation Qualified Code(s): J44.1 - Chronic obstructive pulmonary disease with (acute) exacerbation (3) CHF (congestive heart failure) Priority: Primary Status: Acute Comments: CHF unspecified - not in exacerbation BNP - 109 Echocardiogram - pending Continue Coreg, Sotalol, Lasix, ASA, Plavix Qualifiers: Congestive heart failure type: systolic Congestive heart failure chronicity : chronic Qualified Code(s): I50.22 - Chronic systolic (congestive) heart failure (4) CAD (coronary artery disease) Priority: Secondary Status: Chronic Comments: Coronary artery disease, stable H/o PR at 44; v-tach history - s/p Pacemaker/defibrilator Troponin - negative Continue Aspirin, Lasix, Coreg, Lipitor Qualifiers: Coronary Disease-Associated Artery/Lesion type: [place] artery [place] vs. transplanted heart: [place] heart Associated angina: without angina Qualified Code(s): I25.10 - Atherosclerotic heart disease of [place] coronary artery without angina pectoris (5) HTN (hypertension) Priority: Secondary Status: Chronic Comments: Essential hypertension, controlled, monitor Continue Coreg, Lasix Qualifiers: Hypertension type: essential hypertension Qualified Code(s): I10 - Essential (primary) hypertension - Discharge Medications Prescriptions: Albuterol Sulfate [Albuterol Inhaler] 2 puff IH Q4HR PRN #1 inhaler PRN Reason: Shortness Of Breath/Wheezing Azithromycin [Zithromax] 500 mg PO DAILY #5 tablet Ciprofloxacin [Cipro] 500 mg PO BID 10 Days #20 tablet Ipratropium/Albuterol Sulfate [Combivent Respimat Inhal [place]] 1 puff IH QID PRN #30 mist.inhal PRN Reason: Shortness Of Breath/Wheezing predniSONE [PredniSONE] 20 mg PO DAILY #10 tablet Home Medications: Aspirin Enteric Coated [Aspirin EC] 81 mg PO DAILY 05/25/16 [History] Carvedilol [Coreg] 6.25 mg PO BIDWM 05/25/16 [History] Clopidogrel [Plavix] 75 mg PO DAILY 05/25/16 [History] Furosemide [Lasix] 20 mg PO DAILY 05/25/16 [History] Melatonin 10 mg PO HS 05/25/16 [History] Nitroglycerin [Nitrostat] 0.4 mg SL Q5M PRN 05/25/16 [History] OxyCODONE ER (12 HR) [OxyCONTIN] 20 mg PO Q8HR 05/25/16 [History] Oxycodone HCl 15 mg PO TID PRN 05/25/16 [History] Pantoprazole Sodium [Protonix] 40 mg PO DAILY 05/25/16 [History] Tamsulosin [Flomax] 0.4 mg PO QPM 05/25/16 [History] Testosterone Cypionate [Depo-Testosterone] 100 mg IM Q2W 05/25/16 [History] clonazePAM [Klonopin] 1 mg PO HS 05/25/16 [History] Spironolactone [Aldactone] 25 mg PO DAILY 04/11/17 [History] Atorvastatin [Lipitor] 10 mg PO QWEEK 08/27/17 [History] Polyethylene Glycol 3350 [MiraLAX] 17 gm PO DAILY PRN 08/27/17 [History] Sotalol HCl [Betapace] 120 mg PO Q12H 08/27/17 [History] Tiotropium [Spiriva] 18 mcg IH DAILY 08/27/17 [History] clonazePAM [Klonopin] 0.5 mg PO BID PRN 08/27/17 [History] Albuterol Sulfate [Albuterol Inhaler] 2 puff IH Q4HR PRN #1 inhaler 09/01/17 [Rx ] Azithromycin [Zithromax] 500 mg PO DAILY #5 tablet 09/01/17 [Rx] Ciprofloxacin [Cipro] 500 mg PO BID 10 Days #20 tablet 09/01/17 [Rx] Ipratropium/Albuterol Sulfate [Combivent Respimat Inhal [place]] 1 puff IH QID PRN #30 mist.inhal 09/01/17 [Rx] predniSONE [PredniSONE] 20 mg PO DAILY #10 tablet 09/01/17 [Rx] Allergies/Adverse Reactions: 3 Allergy/AdvReac Type Severity Reaction Status Date / Time atorvastatin AdvReac Joint Pain Verified 08/27/17 12:48 clindamycin AdvReac Gastrointestinal Verified 08/27/17 12:48 Upset fenofibrate AdvReac Joint Pain Verified 08/27/17 12:48 ketorolac AdvReac Joint Pain Verified 08/27/17 12:48 pravastatin [From Pravachol] AdvReac Joint Pain Verified 08/27/17 12:48 rosuvastatin [From Crestor] AdvReac Muscle Pain Verified 08/27/17 12:48 simvastatin AdvReac Joint Pain Verified 08/27/17 12:48 Varenicline [From Chantix] AdvReac Hallucinati Verified 08/27/17 12:48 ng Procedures/tests Complete & Pending: Procedures Performed prior 72 hours Category Date Time Status EV echocardiogram Routine Y 08/31/17 16:10 Ordered Date of admission: 08/27/17 17:27 [facility]ults: 08/27/17 17:28 Consult to Pulmonology [CONS] Routine Consulting Provider: [facility] Reason for Consult: ?? Mycobcterail infection / Chronic broncheactasis Call Completed: Yes 08/27/17 21:21 Consult to Nutrition [CONS] Routine Comment: Consulting Provider: NUTRITION Reason for Dietary Consult: MST Score Anticipated date of discharge: 09/01/17 - Patient Status Disposition: Home, Self-Care Condition: Good Functional capacity at discharge: independent ambulation Overall status at discharge: patient is progressing back to baseline - Discharge Instructions Instructions: Ciprofloxacin (By mouth), Albuterol (By breathing), Azithromycin (By mouth), Ipratropium/Albuterol (By breathing) Follow Up With: Alessia Burgos MD [Primary Care Provider] - 09/05/17 10:30 am Skye Murray MD [Partnered Physician] - Additional Instructions: Follow-up appointments: If there is not an appointment listed below, please call your physician and schedule a follow-up appointment. If you have congestive heart failure and your symptoms return, make an appointment with your physician. Medication List: Carry an up to date list of medications you are taking at all time. We have given you an updated medication list including any new medications that you have been prescribed. Please provide that list to your primary provider - Diet and Activity Activity: increase activity as tolerated, resume usual activities as tolerated Diet: low fat, low cholesterol, low salt diet Hospital course: Mr. Beltran is a 62 year old male with past medical history of CHF, coronary artery disease, GERD, hyperlipidemia, hypertension and valvular heart disease and chronic aspiration pneumonitis. He presented to the ED with complaints of chest pain and productive cough and shortness of breath. Initially described the location of the pain and bilateral chest villatoro. He also had subjective fever. He follows up with pulmonology as outpatient. He had a needle biopsy of a nodule done about one week prior to admission. Patient states apparently the biopsy is negative for cancer. Initial evaluation with CTA chest is negative for PE. Pulmonary hyperinflation with bilateral bronchiectasis and multifocal bronchiolitis was seen with patchy multifocal bilateral consolidative changes, initially thought to be mycobacterial disease. Nephrology has evaluated the patient. Sputum for AFB was done. This is negative on 3 separate sputum samples. Quantiferon is pending. Echocardiogram is pending. EKG revealed normal sinus rhythm. Patient was initially on Levaquin and this was changed to Azithromycin. Patient is also on DuoNeb breathing treatment. He was continued on his regular home medications including aspirin and Plavix. He was also on his home dose of sotalol and Lasix and Coreg. Patient is also on steroids and his white count went up. He was also started on IV Zosyn. Patient did not have induration at the site of PPD. Sputum culture grew gram-negative rods which the sensitivities are still pending. Sputum culture also grew staph aureus and was pansensitive. Patient is currently being discharged on Cipro and azithromycin. We will need to follow up on his sputum cultures for gram-negative rods. Patient has been explained that he will need to follow up with his PCP and with pulmonology as outpatient. Patient and his have been explained about his condition and plan of care in detail. They understood and agreed. No unanswered questions. Patient's symptoms have now resolved. Patient states he feels better and wants to go home today. Patient is tolerating oral diet well and ambulating well. He had no other acute events or complications during his stay in the hospital. Patient is being discharged in stable condition. - Time Spent with Patient Total time spent providing and/or coordinating discharge services: Greater than 30 minutes - Constitutional Vitals: Temp Pulse Resp BP Pulse Ox 97.8 F 60 18 93/67 94 09/01/17 11:58 09/01/17 11:58 09/01/17 11:58 09/01/17 11:58 09/01/17 11:58 General appearance: Present: cooperative, A&O X 3, pleasant, no acute distress, underweight, answers questions appropriately - Head Head exam: Present: atraumatic - Eye Eye exam: Present: EOMI - ENT ENT exam: Present: mucous membranes moist - Respiratory Respiratory exam: Present: CTAB. Absent: rales, rhonchi, wheezes, tachypnea - Cardiovascular Cardiovascular exam: Present: RRR, +S1, +S2 - GI/Abdominal GI/Abdominal exam: Present: soft. Absent: distended, firm, guarding, tenderness - Extremities Exam Extremities exam: Present: radial pulses palpable and symmetrical. Absent: calf tenderness, cyanotic, pedal edema Additional comments: Right AKA - Neurological Exam Neurological exam: Present: alert, oriented X3, no focal deficits. Absent: facial droop, speech deficit
[2017-09-02 08:12] LABS: QuantiFERON NIL 0.03 IU/mL; QuantiFERON-TB Gold In-Tube NEGATIVE (Negative)
== END 2017-09-01 15:35 | disposition home or self-care (01) | DRG 190 ==
LOC: EMEROO 12:40 → 3BNU 12:40 → 3ANU 16:42 → 2NNU 16:53 → SUATTDRO 17:27 → 2NNU 18:42
PROVIDERS: ADMIT Internal Medicine; ATTEND Internal Medicine